=== PATIENT | female | born 1955 | race Caucasian/White ===

== ENCOUNTER 2017-02-12 14:17 | Emergency (ER) | payer MEDICARE, OTHER ==
[2017-02-12 14:31] VITALS: RESP 16
[2017-02-12] MEDS ORDERED: KETOROLAC 30 MG/ML 1 ML VIAL IVP STA (14:36)
[2017-02-12] MEDS ORDERED: SODIUM CHLORIDE 0.9% 1,000 ML IV STA (14:36)
[2017-02-12] MEDS ORDERED: methylPREDNISolone SOD SUCCI 125 MG/2 ML VIAL IV STA (15:20)
[2017-02-12] MEDS ORDERED: LORazepam 2 MG/ML INJ IV STA (15:20)
[2017-02-12] MEDS ORDERED: HYDROmorphone 1 MG/ML 1 ML SYRINGE IVP STA (15:20)
--- NOTE | 2017-02-12 15:23 | ED ---
General Adult HPI - General Chief complaint: Chest Pain Stated complaint: COPD Time Seen by Provider: 02/12/17 14:33 Source: patient, RN notes reviewed, old records reviewed Mode of arrival: ambulatory Limitations: no limitations - History of Present Illness Initial comments: This is a 61-year-old female to the ER for evaluation of shortness of cough congestion. Patient denies pain no chest pain no fevers. No travel history no sick contacts. Patient is well known history of COPD is doing. She was at home with no real significant improvement. Symptoms have progressed. No modifying factors for symptoms at home. - Related Data Home Medications Medication Instructions Recorded Confirmed Cyclobenzaprine [Flexeril] 10 mg PO TID PRN 04/12/14 02/12/17 HYDROcodone/APAP 5-325MG [[place] 1 tab PO Q6H PRN 04/12/14 02/12/17 5-325] LORazepam [Ativan] 0.5 mg PO BID PRN 04/12/14 02/12/17 Omeprazole [PriLOSEC] 20 mg PO DAILY 04/12/14 02/12/17 Aspirin 325 mg PO DAILY 07/13/16 02/12/17 Atorvastatin Calcium [Lipitor] 20 mg PO HS 07/13/16 02/12/17 Albuterol Nebulized [Ventolin 2.5 mg INHALATION RT-Q6H PRN 12/29/16 02/12/17 Nebulized] Albuterol Sulfate [Proair Hfa] 2 puff INHALATION RT-QID 02/12/17 02/12/17 Tiotropium [place] [Spiriva] 1 cap INHALATION DAILY 02/12/17 02/12/17 Triamcinolone 0.1% Cream [Kenalog] 1 applicatio TOPICAL BID PRN 02/12/17 Previous Rx's Medication Instructions Recorded Albuterol Nebulized [Ventolin 2.5 mg INHALATION Q4H PRN #25 nebu 02/12/17 Nebulized] Albuterol Sulfate [Proair Hfa] 1 - 2 puff INHALATION Q4H PRN #1 02/12/17 inhaler Azithromycin [Zithromax] 0 mg PO DIRECTED #6 tab 02/12/17 Naproxen [Naprosyn] 500 mg PO Q12HR PRN #30 tab 02/12/17 predniSONE 50 mg PO DAILY #5 tab 02/12/17 Allergies Allergy/AdvReac Type Severity Reaction Status Date / Time codeine Allergy Rapid Verified 02/12/17 15:28 Heart Rate meperidine HCl [From Demerol] Allergy Rapid Verified 02/12/17 15:28 Heart Rate morphine Allergy Rapid Verified 02/12/17 15:28 Heart Rate Review of Systems ROS Statement: Those systems with pertinent positive or pertinent negative responses have been documented in the HPI. ROS Other: All systems not noted in ROS Statement are negative. Past Medical History Past Medical History: Asthma, GERD/Reflux, Hyperlipidemia, Pneumonia, Skin Disorder Additional Past Medical History / Comment(s): COPD, chronic back pain, chronic neck pain and the patient has undergone previous cervical spine surgery, psoriasis, osteoarthritis, hyperlipidemia History of Any Multi-Drug Resistant Organisms: None Reported Past Surgical History: Appendectomy, Orthopedic Surgery, Tonsillectomy, Tubal Ligation Additional Past Surgical History / Comment(s): cervical fusion with plate and screws, EGD, colonoscopies. Past Anesthesia/Blood Transfusion Reactions: Motion Sickness, No Reported Reaction Past Psychological History: No Psychological Hx Reported Smoking Status: Former smoker Past Alcohol Use History: None Reported Past Drug Use History: None Reported - Past Family History Father Family Medical History: Cancer Additional Family Medical History / Comment(s): Father of colon cancer at the age of 57yrs. Mother Family Medical History: Congestive Heart Failure (CHF), Neurologic Disorder Additional Family Medical History / Comment(s): Mother of CHF at the age of 63yrs. She had [place]'s dx. General Exam Limitations: no limitations General appearance: alert, in no apparent distress Head exam: Present: atraumatic, normocephalic, normal inspection Eye exam: Present: normal appearance, PERRL, EOMI. Absent: scleral icterus, conjunctival injection, periorbital swelling ENT exam: Present: normal exam, mucous membranes moist Neck exam: Present: normal inspection. Absent: tenderness, meningismus, lymphadenopathy Respiratory exam: Present: wheezes. Absent: respiratory distress, rales, rhonchi, stridor Cardiovascular Exam: Present: normal rhythm, tachycardia, normal heart sounds. Absent: systolic murmur, diastolic murmur, rubs, gallop, clicks GI/Abdominal exam: Present: soft, normal bowel sounds. Absent: distended, tenderness, guarding, rebound, rigid Extremities exam: Present: normal inspection, full ROM, normal capillary refill. Absent: tenderness, pedal edema, joint swelling, calf tenderness Back exam: Present: normal inspection Neurological exam: Present: alert, oriented X3, CN II-XII intact Psychiatric exam: Present: normal affect, normal mood Skin exam: Present: warm, dry, intact, normal color. Absent: rash Course Vital Signs 02/12/17 02/12/17 02/12/17 14:28 15:18 15:43 Temperature 97.9 F Pulse Rate 108 H 98 90 Respiratory 16 16 16 Rate Blood Pressure 152/74 149/79 164/79 O2 Sat by Pulse 97 96 98 Oximetry 02/12/17 16:34 Temperature 98.7 F Pulse Rate 76 Respiratory 16 Rate Blood Pressure 140/72 O2 Sat by Pulse 98 Oximetry - Reevaluation(s) Reevaluation #1: Patient's symptoms are much improved throat yesterday, wanting to be discharged home EKG Findings - EKG Comments: EKG Findings:: EKG shows sinus tachycardia rate of 105, [place] 156, QRS 86, QTc 489 Medical Decision Making - Medical Decision Making 61 female to ER for evaluation of cough congestion shortness of breath well- known to this emergency room history of COPD. Current COPD exacerbation. Extremities is normal. Patient is feeling better and can be discharged home - Lab Data Result diagrams: 02/12/17 15:15 02/12/17 15:15 Lab Results 02/12/17 02/12/17 02/12/17 Range/Units 15:15 15:15 15:15 WBC 5.8 (3.8-10.6) k/uL RBC 4.93 (3.80-5.40) m/uL Hgb 13.5 (11.4-16.0) gm/dL Hct 42.2 (34.0-46.0) % MCV 85.7 (80.0-100.0) fL MCH 27.4 (25.0-35.0) pg MCHC 31.9 (31.0-37.0) g/dL RDW 14.7 (11.5-15.5) % Plt Count 285 (150-450) k/uL Neutrophils % 48 % Lymphocytes % 39 % Monocytes % 7 % Eosinophils % 3 % Basophils % 2 % Neutrophils # 2.8 (1.3-7.7) k/uL Lymphocytes # 2.3 (1.0-4.8) k/uL Monocytes # 0.4 (0-1.0) k/uL Eosinophils # 0.2 (0-0.7) k/uL Basophils # 0.1 (0-0.2) k/uL PT (9.0-12.0) sec INR (<1.2) APTT (22.0-30.0) sec D-Dimer (<0.60) mg/L FEU Sodium 141 (137-145) mmol/L Potassium 4.5 (3.5-5.1) mmol/L Chloride 102 (98-107) mmol/L Carbon Dioxide 26 (22-30) mmol/L Anion Gap 13 mmol/L BUN 7 (7-17) mg/dL Creatinine 0.70 (0.52-1.04) mg/dL Est GFR (MDRD) Af Amer >60 (>60 ml/min/1.73 sqM) Est GFR (MDRD) Non-Af >60 (>60 ml/min/1.73 sqM) Glucose 118 H (74-99) mg/dL Calcium 9.9 (8.4-10.2) mg/dL Magnesium 2.2 (1.6-2.3) mg/dL Total Bilirubin 0.4 (0.2-1.3) mg/dL AST 83 H (14-36) U/L ALT 78 H (9-52) U/L Alkaline Phosphatase 101 (38-126) U/L Total Creatine Kinase 62 (30-135) U/L CK-MB (CK-2) 0.7 (0.0-2.4) ng/mL CK-MB (CK-2) Rel Index 1.1 Troponin I <0.012 (0.000-0.034) ng/mL Total Protein 7.9 (6.3-8.2) g/dL Albumin 4.2 (3.5-5.0) g/dL Lipase 51 (23-300) U/L 02/12/ Range/Units 15:15 WBC (3.8-10.6) k/uL RBC (3.80-5.40) m/uL Hgb (11.4-16.0) gm/dL Hct (34.0-46.0) % MCV (80.0-100.0) fL MCH (25.0-35.0) pg MCHC (31.0-37.0) g/dL RDW (11.5-15.5) % Plt Count (150-450) k/uL Neutrophils % % Lymphocytes % % Monocytes % % Eosinophils % % Basophils % % Neutrophils # (1.3-7.7) k/uL Lymphocytes # (1.0-4.8) k/uL Monocytes # (0-1.0) k/uL Eosinophils # (0-0.7) k/uL Basophils # (0-0.2) k/uL PT 10.2 (9.0-12.0) sec INR 1.0 (<1.2) APTT 25.6 (22.0-30.0) sec D-Dimer 0.23 (<0.60) mg/L FEU Sodium (137-145) mmol/L Potassium (3.5-5.1) mmol/L Chloride (98-107) mmol/L Carbon Dioxide (22-30) mmol/L Anion Gap mmol/L BUN (7-17) mg/dL Creatinine (0.52-1.04) mg/dL Est GFR (MDRD) Af Amer (>60 ml/min/1.73 sqM) Est GFR (MDRD) Non-Af (>60 ml/min/1.73 sqM) Glucose (74-99) mg/dL Calcium (8.4-10.2) mg/dL Magnesium (1.6-2.3) mg/dL Total Bilirubin (0.2-1.3) mg/dL AST (14-36) U/L ALT (9-52) U/L Alkaline Phosphatase (38-126) U/L Total Creatine Kinase (30-135) U/L CK-MB (CK-2) (0.0-2.4) ng/mL CK-MB (CK-2) Rel Index Troponin I (0.000-0.034) ng/mL Total Protein (6.3-8.2) g/dL Albumin (3.5-5.0) g/dL Lipase (23-300) U/L Disposition Clinical Impression: Acute exacerbation of chronic obstructive airways disease, Anxiety Disposition: HOME SELF-CARE Condition: Good Instructions: COPD (Chronic Obstructive Pulmonary Disease) (ED), Chronic Bronchitis (ED) Prescriptions: Albuterol Nebulized [Ventolin Nebulized] 2.5 mg INHALATION Q4H PRN #25 nebu PRN Reason: Shortness Of Breath Albuterol Sulfate [Proair Hfa] 1 - 2 puff INHALATION Q4H PRN #1 inhaler PRN Reason: Shortness Of Breath Azithromycin [Zithromax] 0 mg PO DIRECTED #6 tab Naproxen [Naprosyn] 500 mg PO Q12HR PRN #30 tab PRN Reason: Pain predniSONE 50 mg PO DAILY #5 tab Referrals: Joey Caldwell MD [Primary Care Provider] - 1-2 days
[2017-02-12 15:44] LABS: Basophils # (A) 0.1 k/uL (0-0.2); Basophils % (A) 2 %; Eosinophils # (A) 0.2 k/uL (0-0.7); Eosinophils % (A) 3 %; HCT 42.2 % (34.0-46.0); HGB 13.5 gm/dL (11.4-16.0); Lymphocytes # (A) 2.3 k/uL (1.0-4.8); Lymphocytes % (A) 39 %; MCH 27.4 pg (25.0-35.0); MCHC 31.9 g/dL (31.0-37.0); MCV 85.7 fL (80.0-100.0); Mean Platelet Volume 7.6; Monocytes # (A) 0.4 k/uL (0-1.0); Monocytes % (A) 7 %; Neutrophils # (A) 2.8 k/uL (1.3-7.7); Neutrophils % (A) 48 %; Platelet Count 285 k/uL (150-450); RBC 4.93 m/uL (3.80-5.40); RDW 14.7 % (11.5-15.5); WBC 5.8 k/uL (3.8-10.6)
[2017-02-12 15:53] LABS: ALT 78 U/L (9-52); AST 83 U/L (14-36); Albumin 4.2 g/dL (3.5-5.0); Alkaline Phosphatase 101 U/L (38-126); Anion Gap 13 mmol/L; Blood Urea Nitrogen 7 mg/dL (7-17); Calcium 9.9 mg/dL (8.4-10.2); Carbon Dioxide 26 mmol/L (22-30); Chloride 102 mmol/L (98-107); Glucose 118 mg/dL (74-99); Lipase 51 U/L (23-300); Magnesium 2.2 mg/dL (1.6-2.3); Sodium 141 mmol/L (137-145); Total Bilirubin 0.4 mg/dL (0.2-1.3); Total Protein 7.9 g/dL (6.3-8.2)
[2017-02-12 15:55] LABS: Potassium 4.5 mmol/L (3.5-5.1)
[2017-02-12 16:00] LABS: Creatine Kinase 62 U/L (30-135)
[2017-02-12 16:12] LABS: Creatine Kinase MB 0.7 ng/mL (0.0-2.4); Troponin I <0.012 ng/mL (0.000-0.034)
[2017-02-12 16:20] LABS: D-Dimer 0.23 mg/L FEU (<0.60); Partial Thromboplastin Time 25.6 sec (22.0-30.0); Prothrombin Time 10.2 sec (9.0-12.0)
[2017-02-12 16:35] VITALS: BP 140/72; PULSE 76; TEMP 98.7
--- NOTE | 2017-02-12 16:43 | XR ---
EXAMINATION TYPE: XR chest 1V portable DATE OF EXAM: 02/12/2017 COMPARISON: 12/29/2016 HISTORY: Shortness of breath TECHNIQUE: Frontal and lateral views of the chest are obtained. FINDINGS: Scattered senescent parenchymal changes noted. Hyperinflation compatible with COPD. No evidence for infiltrate. No evidence for atelectasis. Heart size is stable. Mediastinal structures are stable and grossly unremarkable. No evidence for hilar prominence. Degenerative changes dorsal spine. IMPRESSION: 1. No evidence for acute pulmonary disease.
== END 2017-02-12 16:43 | disposition home or self-care (01) ==
LOC: EC 14:17
DX: J44.1 Chronic obstructive pulmonary disease with (acute) exacerbation (principal); F41.9 Anxiety disorder, unspecified; K21.9 Gastro-esophageal reflux disease without esophagitis; E78.5 Hyperlipidemia, unspecified; Z87.891 Personal history of nicotine dependence; Z79.82 Long term (current) use of aspirin; Z79.899 Other long term (current) drug therapy; Z88.5 Allergy status to narcotic agent
CPT/HCPCS: 99285; 96374; 96375 ×2; 96361; 36415; 93005; 85379; 80053; 82550; 82553; 83690; 83735; 84484; 85025; 85610; 85730; 71010; J2060; J2930; J1885

== ENCOUNTER 2017-05-15 14:55 | Observation (INO) | payer MEDICARE, OTHER ==
[2017-05-15] MEDS ORDERED: IPRATROPIUM-ALBUTEROL 3 ML NEB INHALATION STA (15:20)
[2017-05-15] MEDS ORDERED: ACETAMINOPHEN TAB 500 MG TAB PO STA (15:20)
--- NOTE | 2017-05-15 15:23 | ED ---
General Adult HPI - General Chief complaint: Shortness of Breath Stated complaint: cough; hx of asthma Time Seen by Provider: 05/15/17 15:12 Source: patient Mode of arrival: ambulatory Limitations: no limitations - History of Present Illness Initial comments: Patient is a pleasant 62-year-old female presenting to the emergency department with difficulty in breathing. Symptoms have progressed over the past couple of days. Patient has cough which is dry nonproductive. Patient does have some sternal discomfort as well. Patient is unclear if discomfort is related to cough or not. Patient does have somewhat similar symptoms previously associated with COPD. Patient also has asthma. Patient is unaware of any fevers. - Related Data Home Medications Medication Instructions Recorded Confirmed Cyclobenzaprine [Flexeril] 10 mg PO TID PRN 04/12/14 05/15/17 HYDROcodone/APAP 5-325MG [[place] 1 tab PO Q6H PRN 04/12/14 05/15/17 5-325] Omeprazole [PriLOSEC] 20 mg PO DAILY 04/12/14 05/15/17 Aspirin 325 mg PO DAILY 07/13/16 05/15/17 Atorvastatin Calcium [Lipitor] 20 mg PO HS 07/13/16 05/15/17 Albuterol Nebulized [Ventolin 2.5 mg INHALATION RT-Q6H PRN 12/29/16 05/15/17 Nebulized] Albuterol Sulfate [Proair Hfa] 2 puff INHALATION RT-QID 02/12/17 05/15/17 Tiotropium [place] [Spiriva] 1 cap INHALATION RT-DAILY 02/12/17 05/15/17 Previous Rx's Medication Instructions Recorded Naproxen [Naprosyn] 500 mg PO Q12HR PRN #30 tab 02/12/17 Allergies Allergy/AdvReac Type Severity Reaction Status Date / Time codeine Allergy Rapid Verified 05/15/17 15:13 Heart Rate meperidine HCl [From Demerol] Allergy Rapid Verified 05/15/17 15:13 Heart Rate morphine Allergy Rapid Verified 05/15/17 15:13 Heart Rate Review of Systems ROS Statement: Those systems with pertinent positive or pertinent negative responses have been documented in the HPI. ROS Other: All systems not noted in ROS Statement are negative. Constitutional: Denies: fever, chills Eyes: Denies: eye pain ENT: Denies: ear pain Respiratory: Reports: cough, dyspnea Cardiovascular: Reports: chest pain Endocrine: Denies: fatigue Gastrointestinal: Denies: abdominal pain Genitourinary: Denies: dysuria Musculoskeletal: Denies: back pain Skin: Denies: rash Neurological: Denies: headache Past Medical History Past Medical History: Asthma, GERD/Reflux, Hyperlipidemia, Pneumonia, Skin Disorder Additional Past Medical History / Comment(s): COPD, chronic back pain, chronic neck pain and the patient has undergone previous cervical spine surgery, psoriasis, osteoarthritis, hyperlipidemia History of Any Multi-Drug Resistant Organisms: None Reported Past Surgical History: Appendectomy, Orthopedic Surgery, Tonsillectomy, Tubal Ligation Additional Past Surgical History / Comment(s): cervical fusion with plate and screws, EGD, colonoscopies. Past Anesthesia/Blood Transfusion Reactions: Motion Sickness, No Reported Reaction Past Psychological History: No Psychological Hx Reported Smoking Status: Former smoker Past Alcohol Use History: None Reported Past Drug Use History: None Reported - Past Family History Father Family Medical History: Cancer Additional Family Medical History / Comment(s): Father of colon cancer at the age of 57yrs. Mother Family Medical History: Congestive Heart Failure (CHF), Neurologic Disorder Additional Family Medical History / Comment(s): Mother of CHF at the age of 63yrs. She had [place]'s dx. General Exam Limitations: no limitations General appearance: alert, in no apparent distress Head exam: Present: atraumatic Eye exam: Present: normal appearance, PERRL ENT exam: Present: normal oropharynx Neck exam: Present: normal inspection Respiratory exam: Present: wheezes, decreased breath sounds Cardiovascular Exam: Present: regular rate, normal rhythm Expanded Peripheral pulses: 2+: Dorsalis Pedis (R), Dorsalis Pedis (L) GI/Abdominal exam: Present: soft. Absent: tenderness Extremities exam: Present: normal inspection. Absent: pedal edema, calf tenderness Neurological exam: Present: alert Psychiatric exam: Present: normal affect, normal mood Skin exam: Present: normal color Course Vital Signs 05/15/17 05/15/17 05/15/17 14:59 15:28 15:36 Temperature 99.8 F H Pulse Rate 103 H 90 91 Respiratory 18 16 16 Rate Blood Pressure 155/119 O2 Sat by Pulse 96 Oximetry 05/15/17 16:16 Temperature Pulse Rate 94 Respiratory 16 Rate Blood Pressure 174/95 O2 Sat by Pulse 95 Oximetry EKG Findings - EKG Comments: EKG Findings:: Normal sinus rhythm 92. CT 152. QRS 96. QT 406. QTc 502. Normal axis. Inferior Q waves. No acute ST change. Medical Decision Making - Medical Decision Making Patient reevaluated and resting comfortably in bed. Patient still has some dyspnea. Patient is updated on results and plan. Case discussed in detail with Dr. Valladares, who will admit for hospital call. D-dimer has been added. - Lab Data Result diagrams: 05/15/17 15:45 05/15/17 15:45 Lab Results 05/15/17 05/15/17 05/15/17 Range/Units 15:30 15:45 15:45 WBC 6.4 (3.8-10.6) k/uL RBC 4.64 (3.80-5.40) m/uL Hgb 12.6 (11.4-16.0) gm/dL Hct 38.7 (34.0-46.0) % MCV 83.4 (80.0-100.0) fL MCH 27.1 (25.0-35.0) pg MCHC 32.5 (31.0-37.0) g/dL RDW 14.5 (11.5-15.5) % Plt Count 256 (150-450) k/uL Neutrophils % 54 % Lymphocytes % 37 % Monocytes % 5 % Eosinophils % 1 % Basophils % 1 % Neutrophils # 3.5 (1.3-7.7) k/uL Lymphocytes # 2.4 (1.0-4.8) k/uL Monocytes # 0.4 (0-1.0) k/uL Eosinophils # 0.1 (0-0.7) k/uL Basophils # 0.0 (0-0.2) k/uL PT (9.0-12.0) sec INR (<1.2) APTT (22.0-30.0) sec Sodium (137-145) mmol/L Potassium (3.5-5.1) mmol/L Chloride (98-107) mmol/L Carbon Dioxide (22-30) mmol/L Anion Gap mmol/L BUN (7-17) mg/dL Creatinine (0.52-1.04) mg/dL Est GFR (CKD-EPI)AfAm (>60 ml/min/1.73 sqM) Est GFR (CKD-EPI)NonAf (>60 ml/min/1.73 sqM) Glucose (74-99) mg/dL Plasma Lactic Acid Vivek (0.7-2.0) mmol/L Calcium (8.4-10.2) mg/dL Total Bilirubin (0.2-1.3) mg/dL AST (14-36) U/L ALT (9-52) U/L Alkaline Phosphatase (38-126) U/L Total Creatine Kinase 81 (30-135) U/L CK-MB (CK-2) 0.7 (0.0-2.4) ng/mL CK-MB (CK-2) Rel Index 0.9 Troponin I <0.012 (0.000-0.034) ng/mL Total Protein (6.3-8.2) g/dL Albumin (3.5-5.0) g/dL Urine Color Urine Appearance (Clear) Urine pH (5.0-8.0) Ur Specific [place] (1.001-1.035) Urine Protein (Negative) Urine Glucose (UA) (Negative) Urine Ketones (Negative) Urine Blood (Negative) Urine Nitrite (Negative) Urine Bilirubin (Negative) Urine Urobilinogen (<2.0) mg/dL Ur Leukocyte Esterase (Negative) Influenza Type A RNA Not Detected (Not Detectd) Influenza Type B (PCR) Not Detected (Not Detectd) 05/15/17 05/15/17 05/15/17 Range/Units 15:45 15:45 15:45 WBC (3.8-10.6) k/uL RBC (3.80-5.40) m/uL Hgb (11.4-16.0) gm/dL Hct (34.0-46.0) % MCV (80.0-100.0) fL MCH (25.0-35.0) pg MCHC (31.0-37.0) g/dL RDW (11.5-15.5) % Plt Count (150-450) k/uL Neutrophils % % Lymphocytes % % Monocytes % % Eosinophils % % Basophils % % Neutrophils # (1.3-7.7) k/uL Lymphocytes # (1.0-4.8) k/uL Monocytes # (0-1.0) k/uL Eosinophils # (0-0.7) k/uL Basophils # (0-0.2) k/uL PT 10.8 (9.0-12.0) sec INR 1.1 (<1.2) APTT 25.1 (22.0-30.0) sec Sodium 139 (137-145) mmol/L Potassium 3.9 (3.5-5.1) mmol/L Chloride 105 (98-107) mmol/L Carbon Dioxide 24 (22-30) mmol/L Anion Gap 10 mmol/L BUN 8 (7-17) mg/dL Creatinine 0.60 (0.52-1.04) mg/dL Est GFR (CKD-EPI)AfAm >90 (>60 ml/min/1.73 sqM) Est GFR (CKD-EPI)NonAf >90 (>60 ml/min/1.73 sqM) Glucose 116 H (74-99) mg/dL Plasma Lactic Acid Vivek 1.5 (0.7-2.0) mmol/L Calcium 9.7 (8.4-10.2) mg/dL Total Bilirubin 0.4 (0.2-1.3) mg/dL AST 130 H (14-36) U/L ALT 92 H (9-52) U/L Alkaline Phosphatase 102 (38-126) U/L Total Creatine Kinase (30-135) U/L CK-MB (CK-2) (0.0-2.4) ng/mL CK-MB (CK-2) Rel Index Troponin I (0.000-0.034) ng/mL Total Protein 7.4 (6.3-8.2) g/dL Albumin 4.2 (3.5-5.0) g/dL Urine Color Urine Appearance (Clear) Urine pH (5.0-8.0) Ur Specific [place] (1.001-1.035) Urine Protein (Negative) Urine Glucose (UA) (Negative) Urine Ketones (Negative) Urine Blood (Negative) Urine Nitrite (Negative) Urine Bilirubin (Negative) Urine Urobilinogen (<2.0) mg/dL Ur Leukocyte Esterase (Negative) Influenza Type A RNA (Not Detectd) Influenza Type B (PCR) (Not Detectd) 05/15/17 Range/Units 16:00 WBC (3.8-10.6) k/uL RBC (3.80-5.40) m/uL Hgb (11.4-16.0) gm/dL Hct (34.0-46.0) % MCV (80.0-100.0) fL MCH (25.0-35.0) pg MCHC (31.0-37.0) g/dL RDW (11.5-15.5) % Plt Count (150-450) k/uL Neutrophils % % Lymphocytes % % Monocytes % % Eosinophils % % Basophils % % Neutrophils # (1.3-7.7) k/uL Lymphocytes # (1.0-4.8) k/uL Monocytes # (0-1.0) k/uL Eosinophils # (0-0.7) k/uL Basophils # (0-0.2) k/uL PT (9.0-12.0) sec INR (<1.2) APTT (22.0-30.0) sec Sodium (137-145) mmol/L Potassium (3.5-5.1) mmol/L Chloride (98-107) mmol/L Carbon Dioxide (22-30) mmol/L Anion Gap mmol/L BUN (7-17) mg/dL Creatinine (0.52-1.04) mg/dL Est GFR (CKD-EPI)AfAm (>60 ml/min/1.73 sqM) Est GFR (CKD-EPI)NonAf (>60 ml/min/1.73 sqM) Glucose (74-99) mg/dL Plasma Lactic Acid Vivek (0.7-2.0) mmol/L Calcium (8.4-10.2) mg/dL Total Bilirubin (0.2-1.3) mg/dL AST (14-36) U/L ALT (9-52) U/L Alkaline Phosphatase (38-126) U/L Total Creatine Kinase (30-135) U/L CK-MB (CK-2) (0.0-2.4) ng/mL CK-MB (CK-2) Rel Index Troponin I (0.000-0.034) ng/mL Total Protein (6.3-8.2) g/dL Albumin (3.5-5.0) g/dL Urine Color Colorless Urine Appearance Clear (Clear) Urine pH 6.0 (5.0-8.0) Ur Specific [place] 1.001 (1.001-1.035) Urine Protein Negative (Negative) Urine Glucose (UA) Negative (Negative) Urine Ketones Negative (Negative) Urine Blood Negative (Negative) Urine Nitrite Negative (Negative) Urine Bilirubin Negative (Negative) Urine Urobilinogen <2.0 (<2.0) mg/dL Ur Leukocyte Esterase Negative (Negative) Influenza Type A RNA (Not Detectd) Influenza Type B (PCR) (Not Detectd) - Radiology Data Radiology results: image reviewed (Chest x-ray shows no acute process) Disposition Clinical Impression: Acute exacerbation of chronic obstructive airways disease, Chest pain Disposition: ADMITTED IP TO THIS HOSP Referrals: Alberto Hunt MD [Primary Care Provider] - 1-2 days Decision Time: 16:54
[2017-05-15 15:58] LABS: Basophils % (A) 1 %; Eosinophils # (A) 0.1 k/uL (0-0.7); Eosinophils % (A) 1 %; HCT 38.7 % (34.0-46.0); HGB 12.6 gm/dL (11.4-16.0); Lymphocytes # (A) 2.4 k/uL (1.0-4.8); Lymphocytes % (A) 37 %; MCH 27.1 pg (25.0-35.0); MCHC 32.5 g/dL (31.0-37.0); MCV 83.4 fL (80.0-100.0); Mean Platelet Volume 7.6; Monocytes # (A) 0.4 k/uL (0-1.0); Monocytes % (A) 5 %; Neutrophils # (A) 3.5 k/uL (1.3-7.7); Neutrophils % (A) 54 %; Platelet Count 256 k/uL (150-450); RBC 4.64 m/uL (3.80-5.40); RDW 14.5 % (11.5-15.5); WBC 6.4 k/uL (3.8-10.6)
[2017-05-15 16:06] LABS: INR 1.1 (<1.2); Partial Thromboplastin Time 25.1 sec (22.0-30.0); Prothrombin Time 10.8 sec (9.0-12.0)
[2017-05-15 16:08] LABS: ALT 92 U/L (9-52); AST 130 U/L (14-36); Albumin 4.2 g/dL (3.5-5.0); Alkaline Phosphatase 102 U/L (38-126); Anion Gap 10 mmol/L; Blood Urea Nitrogen 8 mg/dL (7-17); Calcium 9.7 mg/dL (8.4-10.2); Carbon Dioxide 24 mmol/L (22-30); Chloride 105 mmol/L (98-107); Glucose 116 mg/dL (74-99); Potassium 3.9 mmol/L (3.5-5.1); Sodium 139 mmol/L (137-145); Total Bilirubin 0.4 mg/dL (0.2-1.3); Total Protein 7.4 g/dL (6.3-8.2)
--- NOTE | 2017-05-15 16:17 | XR ---
EXAMINATION TYPE: XR chest 2V DATE OF EXAM: 05/15/2017 COMPARISON: February 12, 2017 HISTORY: Fever TECHNIQUE: Frontal and lateral views of the chest are obtained. FINDINGS: There is no focal air space opacity, pleural effusion, or pneumothorax seen. The cardiac silhouette size is within normal limits. The osseous structures are intact. IMPRESSION: No acute cardiopulmonary process.
[2017-05-15 16:23] LABS: Appearance,Urine Clear (Clear); Bilirubin,Urine Negative (Negative); Blood,Urine Negative (Negative); Color,Urine Colorless; Glucose,Urine (UA) Negative (Negative); Ketones,Urine Negative (Negative); Leukocyte Esterase,Urine Negative (Negative); Nitrite,Urine Negative (Negative); Protein,Urine Negative (Negative); Specific Gravity,Urine 1.001 (1.001-1.035); Urobilinogen,Urine <2.0 mg/dL (<2.0)
[2017-05-15 16:23] LABS: Creatine Kinase 81 U/L (30-135)
[2017-05-15 16:34] LABS: Creatine Kinase MB 0.7 ng/mL (0.0-2.4); Troponin I <0.012 ng/mL (0.000-0.034)
[2017-05-15] MEDS ORDERED: methylPREDNISolone SOD SUCCI 125 MG/2 ML VIAL IV STA (16:54)
[2017-05-15] MEDS ORDERED: IPRATROPIUM-ALBUTEROL 3 ML NEB INHALATION PRN (16:54)
[2017-05-15] MEDS ORDERED: NITROGLYCERIN SL TABS 0.4 MG TAB SUBLINGUAL PRN (16:54)
[2017-05-15] MEDS ORDERED: ASPIRIN 81 MG PO STA (16:54)
[2017-05-15] MEDS ORDERED: NALOXONE 0.4 MG/ML 1 ML VIAL IV PRN (18:08)
--- NOTE | 2017-05-15 18:08 | P.HPIM ---
History of Present Illness H&P Date: 05/15/17 Chief Complaint: SOB 62-year-old female with history of COPD presented to the emergency department with difficulty in breathing. Patient has been sick since last Wednesday, no reported sick contacts. She has been having pleuritic chest pain with the shortness of breath. She also has cough which is dry nonproductive. She has also been having subjective fevers and chills. No nausea or vomiting, no abdominal pain. No dizziness or diaphoresis. Patient was diagnosed with COPD last June, when she quit smoking. He has been on albuterol and Symbicort since then. In the emergency department she was slightly tachycardic and because of the chest pain she was admitted to the hospital for further evaluation and management. Review of Systems 12 point review of system was performed, negative except for HPI Past Medical History Past Medical History: Asthma, GERD/Reflux, Hyperlipidemia, Pneumonia, Skin Disorder Additional Past Medical History / Comment(s): COPD, chronic back pain, chronic neck pain and the patient has undergone previous cervical spine surgery, psoriasis, osteoarthritis, hyperlipidemia. Jag disease. History of Any Multi-Drug Resistant Organisms: None Reported Past Surgical History: Appendectomy, Orthopedic Surgery, Tonsillectomy, Tubal Ligation Additional Past Surgical History / Comment(s): cervical fusion with plate and screws, EGD, colonoscopies. Past Anesthesia/Blood Transfusion Reactions: Motion Sickness, No Reported Reaction Past Psychological History: No Psychological Hx Reported Smoking Status: Former smoker Past Alcohol Use History: None Reported Past Drug Use History: None Reported - Past Family History Father Family Medical History: Cancer Additional Family Medical History / Comment(s): Father of colon cancer at the age of 57yrs. Mother Family Medical History: Congestive Heart Failure (CHF), Neurologic Disorder Additional Family Medical History / Comment(s): Mother of CHF at the age of 63yrs. She had [place]'s dx. Medications and Allergies Home Medications Medication Instructions Recorded Confirmed Type Cyclobenzaprine [Flexeril] 10 mg PO TID PRN 04/12/14 05/15/17 History HYDROcodone/APAP 5-325MG [[place] 1 tab PO Q6H PRN 04/12/14 05/15/17 History 5-325] Omeprazole [PriLOSEC] 20 mg PO DAILY 04/12/14 05/15/17 History Aspirin 325 mg PO DAILY 07/13/16 05/15/17 History Atorvastatin Calcium [Lipitor] 20 mg PO HS 07/13/16 05/15/17 History Albuterol Nebulized [Ventolin 2.5 mg INHALATION RT-Q6H PRN 12/29/16 05/15/17 History Nebulized] Albuterol Sulfate [Proair Hfa] 2 puff INHALATION RT-QID 02/12/17 05/15/17 History Naproxen [Naprosyn] 500 mg PO Q12HR PRN #30 tab 02/12/17 05/15/17 Rx Tiotropium [place] [Spiriva] 1 cap INHALATION RT-DAILY 02/12/17 05/15/17 History Allergies Allergy/AdvReac Type Severity Reaction Status Date / Time codeine Allergy Rapid Verified 05/15/17 15:13 Heart Rate meperidine HCl [From Demerol] Allergy Rapid Verified 05/15/17 15:13 Heart Rate morphine Allergy Rapid Verified 05/15/17 15:13 Heart Rate Physical Exam Vitals: Vital Signs Temp Pulse Resp BP Pulse Ox 05/15/17 17:00 98 16 139/81 97 05/15/17 16:16 94 16 174/95 95 05/15/17 15:36 91 16 05/15/17 15:28 90 16 05/15/17 14:59 99.8 F H 103 H 18 155/119 96 Intake and Output 05/15/17 05/15/17 05/15/17 06:59 14:59 22:59 Other: Weight 92.986 kg Constitutional: No acute distress, conversant, pleasant Eyes:Anicteric sclerae, moist conjunctiva, no lid-lag, PERRLA, ENMT: Oropharynx clear, no erythema, exudates Neck: Supple, FROM, no masses, or JVD, No carotid bruits, No thyromegaly Lungs: Clear to auscultation, Clear to percussion, Normal respiratory effort, no accessory muscle use Cardiovascular: Heart regular in rate and rhythm, No murmurs, gallops, or rubs, No peripheral edema Abdominal: Soft, Nontender, no guarding, rebound or rigidity, Normoactive bowel sounds, No hepatomegaly, No splenomegaly, No palpable mass Skin: Normal temperature, tone, texture, turgor, no induration, No subcutaneous nodules, No rash, lesions, No ulcers Extremities: No digital cyanosis, No clubbing, Pedal pulses intact and symmetrical, Radial pulses intact and symmetrical, No calf tenderness Psychiatric: Alert and oriented to person, place and time, appropriate affect, intact judgement Neuro: Muscles Strength 5/5 in all 4 extremities, Sensation to light touch grossly present throughout, Cranial nerves II-XII grossly intact, no focal sensory deficits Results CBC & Chem 7: 05/15/17 15:45 05/15/17 15:45 Labs: Abnormal Lab Results - Last 24 Hours (Table) 05/15/17 Range/Units 15:45 Glucose 116 H (74-99) mg/dL AST 130 H (14-36) U/L ALT 92 H (9-52) U/L Assessment and Plan Plan: Acute COPD exacerbation/acute bronchitis: Admit to observation DuoNeb every 6hrs Prednisone Doxycycline 100 mg by mouth twice a day Acute chest pain: Likely pleuritic as patient mainly had it when she was coughing Cycle troponins Tylenol when necessary for pain TELEMETRY Cardiology consult GERD/Reflux, Hyperlipidemia, chronic back pain, chronic neck pain, psoriasis, osteoarthritis, hyperlipidemia. [place] disease: Chronic, stable Continue home medications
[2017-05-15] MEDS: NITROGLYCERIN OINT 1 INCH/GM PACKET TOPICAL SCH ×2 (18:37→23:58)
[2017-05-15] MEDS: IPRATROPIUM-ALBUTEROL 3 ML NEB INHALATION SCH (20:02)
[2017-05-15] MEDS: methylPREDNISolone SOD SUCCI 125 MG/2 ML VIAL IV SCH ×2 (20:10→23:58)
[2017-05-15 20:58] VITALS: BMI 34.0
[2017-05-15 22:30] LABS: Creatine Kinase 67 U/L (30-135)
[2017-05-15] MEDS ORDERED: ATORVASTATIN 20 MG TAB PO SCH (22:30)
[2017-05-15 22:43] LABS: Creatine Kinase MB 0.6 ng/mL (0.0-2.4); Troponin I <0.012 ng/mL (0.000-0.034)
[2017-05-15] MEDS: HYDROcodone/APAP 5-325MG 1 EACH TAB PO PRN (23:21)
[2017-05-15] MEDS: CYCLOBENZAPRINE 10 MG TAB PO PRN (23:58)
[2017-05-16 04:34] LABS: Cholesterol 190 mg/dL (<200); HDL Cholesterol 50 mg/dL (40-60); LDL Cholesterol,Calculated 123 mg/dL (0-99); Triglycerides 84 mg/dL (<150)
[2017-05-16 04:43] LABS: Creatine Kinase 60 U/L (30-135)
[2017-05-16 04:57] LABS: Creatine Kinase MB 0.6 ng/mL (0.0-2.4); Troponin I <0.012 ng/mL (0.000-0.034)
[2017-05-16] MEDS: NITROGLYCERIN OINT 1 INCH/GM PACKET TOPICAL SCH ×3 (06:29→18:21)
[2017-05-16] MEDS: methylPREDNISolone SOD SUCCI 125 MG/2 ML VIAL IV SCH ×3 (06:30→18:21)
[2017-05-16] MEDS ORDERED: NON-FORMULARY DRUG (Tiotropium Bromide [Spiriva] 1 CAP) INHALATION SCH (08:00)
[2017-05-16] MEDS: IPRATROPIUM-ALBUTEROL 3 ML NEB INHALATION SCH ×4 (08:03→19:54)
[2017-05-16] MEDS ORDERED: ASPIRIN 325 MG TAB PO SCH ×2 (09:00→13:12)
[2017-05-16 10:31] LABS: T4, Free (Free Thyroxine) 1.12 ng/dL (0.78-2.19)
--- NOTE | 2017-05-16 10:51 | P.PN ---
Subjective Progress Note Date: 05/16/17 Principal diagnosis: SOB Patient is still having cough, significant shortness of breath and pleuritic chest pain. Objective - Vital Signs Vital signs: Vital Signs Temp 98.1 F 05/16/17 08:00 Pulse 101 H 05/16/17 08:15 Resp 16 05/16/17 08:00 BP 131/68 05/16/17 08:00 Pulse Ox 95 05/16/17 08:03 Intake & Output 05/15/17 05/16/17 05/16/17 18:59 06:59 18:59 Weight 92.986 kg 92.9 kg Other: Voiding Method Toilet # Voids 1 - Exam Constitutional: No acute distress, conversant, pleasant Eyes:Anicteric sclerae, moist conjunctiva, no lid-lag, PERRLA, ENMT: Oropharynx clear, no erythema, exudates Neck: Supple, FROM, no masses, or JVD, No carotid bruits, No thyromegaly Lungs: Clear to auscultation, Clear to percussion, Normal respiratory effort, no accessory muscle use Cardiovascular: Heart regular in rate and rhythm, No murmurs, gallops, or rubs, No peripheral edema Abdominal: Soft, Nontender, no guarding, rebound or rigidity, Normoactive bowel sounds, No hepatomegaly, No splenomegaly, No palpable mass Skin: Normal temperature, tone, texture, turgor, no induration, No subcutaneous nodules, No rash, lesions, No ulcers Extremities: No digital cyanosis, No clubbing, Pedal pulses intact and symmetrical, Radial pulses intact and symmetrical, No calf tenderness Psychiatric: Alert and oriented to person, place and time, appropriate affect, intact judgement Neuro: Muscles Strength 5/5 in all 4 extremities, Sensation to light touch grossly present throughout, Cranial nerves II-XII grossly intact, no focal sensory deficits - Labs CBC & Chem 7: 05/15/17 15:45 05/15/17 15:45 Labs: Abnormal Lab Results - Last 24 Hours (Table) 05/15/17 05/16/17 05/16/17 Range/Units 15:45 03:44 03:44 Glucose 116 H (74-99) mg/dL AST 130 H (14-36) U/L ALT 92 H (9-52) U/L LDL Cholesterol, Calc 123 H (0-99) mg/dL TSH 0.382 L (0.465-4.680) mIU/L Microbiology - Last 24 Hours (Table) 05/15/17 16:00 Urine Culture - Preliminary Urine,Voided Assessment and Plan Plan: Acute COPD exacerbation/acute bronchitis: Start Robitussin for cough DuoNeb every 6hrs Solu-Medrol Start doxycycline 100 mg by mouth twice a day Acute chest pain: Likely pleuritic as patient mainly had it when she was coughing Troponins cycled WNL Tylenol when necessary for pain TELEMETRY Cardiology consult GERD/Reflux, Hyperlipidemia, chronic back pain, chronic neck pain, psoriasis, osteoarthritis, hyperlipidemia. [place] disease: Chronic, stable Continue home medications
[2017-05-16] MEDS: HYDROcodone/APAP 5-325MG 1 EACH TAB PO PRN ×2 (12:03→18:21)
[2017-05-16] MEDS: PANTOPRAZOLE 40 MG TABLET PO SCH (12:03)
[2017-05-16] MEDS: DOXYCYCLINE 50 MG CAP PO SCH ×2 (12:09→21:21)
[2017-05-16] MEDS: CYCLOBENZAPRINE 10 MG TAB PO PRN (12:33)
--- NOTE | 2017-05-16 13:17 | P.CRDCN ---
History of Present Illness Consult date: 05/16/17 History of present illness: Mrs. Mckay is a pleasant 62-year-old female past medical history significant for COPD, gastroesophageal reflux disease and dyslipidemia. She is also a smoker one pack per day. She denies history of coronary artery disease and has never seen a learning developer for any reason. We have been asked to see her in consultation for complaints of chest pain and palpitations. She states over the last week she has had intermittent chest pain described as tight and sharp in midsternal region radiating over to the right anterior chest wall. Each time she has as it last for approximately 20 minutes with associated palpitations, sob, dizziness and diaphoresis. She cannot specify any aggravating or alleviating factors. Although she does state she has been having intermittent palpitations for the previous year and they seem to be related to nebulizer breathing treatments and inhalers. The pain she is experiencing is reproducible in nature when she takes a deep breath or when she tries to move her torso in any way. EKG on arrival reveals sinus mechanism with no acute ST or T-wave abnormalities. Chest x-ray is negative for acute cardiopulmonary process. Laboratory data reviewed, cardiac enzymes negative 3, hemoglobin 12.6, platelets 256, d-dimer 0.3, potassium 3.9, creatinine 0.6, LDL 123, AST 130, ALT 92, TSH 0.382 and free T4 1 0.12. Current cardiac medications include atorvastatin 20 mg daily and aspirin 325 mg daily. Review of Systems At the time of my exam: CONSTITUTIONAL: Denies fever. Denies chills. EYES: Denies blurred vision. Denies vision changes. Denies eye pain. EARS, NOSE, MOUTH & THROAT: Denies headache. Denies sore throat. Denies ear pain. CARDIOVASCULAR: Denies chest pain. Complains of shortness of breath. Denies orthopnea. Denies PND. Complains of palpitations. RESPIRATORY: Denies cough. GASTROINTESTINAL: Denies abdominal pain. Denies diarrhea. Denies constipation. Denies nausea. Denies vomiting. MUSCULOSKELETAL: Denies myalgias. INTEGUMENTARY: Denies pruitis. Denies rash. NEUROLOGIC: Denies numbness. Denies tingling. Denies weakness. PSYCHIATRIC: Denies anxiety. Denies depression. ENDOCRINE: Denies fatigue. Denies weight change. Denies polydipsia. Denies polyurina. GENITOURINARY: Denies burning, hematuria or urgency with micturation. HEMATOLOGIC: Denies history of anemia. Denies bleeding. Past Medical History Past Medical History: Asthma, COPD, GERD/Reflux, Hyperlipidemia, Osteoarthritis (OA), Pneumonia, Skin Disorder Additional Past Medical History / Comment(s): COPD, chronic back pain, chronic neck pain and the patient has undergone previous cervical spine surgery on the neck, psoriasis, osteoarthritis, hyperlipidemia. Jag disease. History of Any Multi-Drug Resistant Organisms: None Reported Past Surgical History: Appendectomy, Orthopedic Surgery, Tonsillectomy, Tubal Ligation Additional Past Surgical History / Comment(s): cervical fusion with plate and screws, EGD, colonoscopies. Past Anesthesia/Blood Transfusion Reactions: Motion Sickness Smoking Status: Former smoker - Past Family History Father Family Medical History: Cancer Additional Family Medical History / Comment(s): Father of colon cancer at the age of 57yrs. Mother Family Medical History: Congestive Heart Failure (CHF), Neurologic Disorder Additional Family Medical History / Comment(s): Mother of CHF at the age of 63yrs. She had [place]'s dx. Medications and Allergies Home Medications Medication Instructions Recorded Confirmed Type Cyclobenzaprine [Flexeril] 10 mg PO TID PRN 04/12/14 05/15/17 History HYDROcodone/APAP 5-325MG [[place] 1 tab PO Q6H PRN 04/12/14 05/15/17 History 5-325] Omeprazole [PriLOSEC] 20 mg PO DAILY 04/12/14 05/15/17 History Aspirin 325 mg PO DAILY 07/13/16 05/15/17 History Atorvastatin Calcium [Lipitor] 20 mg PO HS 07/13/16 05/15/17 History Albuterol Nebulized [Ventolin 2.5 mg INHALATION RT-Q6H PRN 12/29/16 05/15/17 History Nebulized] Albuterol Sulfate [Proair Hfa] 2 puff INHALATION RT-QID 02/12/17 05/15/17 History Tiotropium [place] [Spiriva] 1 cap INHALATION RT-DAILY 02/12/17 05/15/17 History Citalopram Hydrobromide 20 mg PO DAILY 05/16/17 05/16/17 History [Citalopram HBr] Allergies Allergy/AdvReac Type Severity Reaction Status Date / Time codeine Allergy Rapid Verified 05/15/17 20:44 Heart Rate meperidine HCl [From Demerol] Allergy Rapid Verified 05/15/17 20:44 Heart Rate morphine Allergy Rapid Verified 05/15/17 20:44 Heart Rate Physical Exam Vitals: Vital Signs Temp Pulse Pulse Resp BP BP Pulse Ox 05/16/17 08:15 101 H 05/16/17 08:03 98 95 05/16/17 08:00 100 18 05/16/17 04:00 97.8 F 100 18 100/55 95 05/16/17 00:23 98.3 F 111 H 18 105/53 95 05/16/17 00:00 16 05/15/17 21:59 98.4 F 83 16 138/75 96 05/15/17 20:13 90 05/15/17 20:02 88 97 05/15/17 20:00 16 05/15/17 19:44 98.5 F 91 18 140/71 96 05/15/17 19:19 97.7 F 89 17 148/72 98 05/15/17 18:32 92 17 151/74 97 05/15/17 17:00 98 16 139/81 97 05/15/17 16:16 94 16 174/95 95 05/15/17 15:36 91 16 05/15/17 15:28 90 16 05/15/17 14:59 99.8 F H 103 H 18 155/119 96 Intake and Output 05/15/17 05/16/17 05/16/17 22:59 06:59 14:59 Other: Voiding Method Toilet # Voids 1 Weight 92.9 kg Blood pressure 166/72 heart rate 109 afebrile maintaining oxygen saturation on room air GENERAL: This is a 62-year-old occasion female in no apparent distress at the time of my examination. Obese. HEENT: Head is atraumatic, normocephalic. Pupils are equal, round. Sclerae anicteric. Conjunctivae are clear. Mucous membranes of the mouth are moist. Neck is supple. There is no jugular venous distention. No carotid bruit is heard. LUNGS: Clear to auscultation no wheezes, rales or rhonchi. No chest wall tenderness is noted on palpation or with deep breathing. HEART: Regular rate and rhythm without murmurs, rubs or gallops. S1 and S2 heard. ABDOMEN: Soft, nontender. Bowel sounds are heard. No organomegaly noted. EXTREMITIES: No evidence of peripheral edema and no calf tenderness noted. VASCULAR: Radial and dorsalis pedis pulses palpated, no evidence of clubbing. NEUROLOGIC: Patient is awake, alert and oriented x3. Results 05/15/17 15:45 05/15/17 15:45 Cardiac Enzymes 05/15/17 05/15/17 05/15/17 Range/Units 15:45 15:45 21:53 AST 130 H (14-36) U/L CK-MB (CK-2) 0.7 0.6 (0.0-2.4) ng/mL Troponin I <0.012 <0.012 (0.000-0.034) ng/mL 05/16/17 Range/Units 03:44 AST (14-36) U/L CK-MB (CK-2) 0.6 (0.0-2.4) ng/mL Troponin I <0.012 (0.000-0.034) ng/mL Coagulation 05/15/17 Range/Units 15:45 PT 10.8 (9.0-12.0) sec APTT 25.1 (22.0-30.0) sec Lipids 05/16/17 Range/Units 03:44 Triglycerides 84 (<150) mg/dL Cholesterol 190 (<200) mg/dL HDL Cholesterol 50 (40-60) mg/dL CBC 05/15/17 Range/Units 15:45 WBC 6.4 (3.8-10.6) k/uL RBC 4.64 (3.80-5.40) m/uL Hgb 12.6 (11.4-16.0) gm/dL Hct 38.7 (34.0-46.0) % Plt Count 256 (150-450) k/uL Comprehensive Metabolic Panel 05/15/17 Range/Units 15:45 Sodium 139 (137-145) mmol/L Potassium 3.9 (3.5-5.1) mmol/L Chloride 105 (98-107) mmol/L Carbon Dioxide 24 (22-30) mmol/L BUN 8 (7-17) mg/dL Creatinine 0.60 (0.52-1.04) mg/dL Glucose 116 H (74-99) mg/dL Calcium 9.7 (8.4-10.2) mg/dL AST 130 H (14-36) U/L ALT 92 H (9-52) U/L Alkaline Phosphatase 102 (38-126) U/L Total Protein 7.4 (6.3-8.2) g/dL Albumin 4.2 (3.5-5.0) g/dL Current Medications Generic Name Dose Route Start Last Admin Trade Name Freq PRN Reason Stop Dose Admin Hydrocodone Bitart/Acetaminophen 1 each 05/15/17 22:21 05/15/17 23:21 [place] 5-325 PO 1 each Q6H PRN Administration Pain Albuterol/Ipratropium 3 ml 05/15/17 20:00 05/16/17 08:03 Duoneb 0.5 Mg-3 Mg/3 Ml Soln INHALATION 3 ml RT-QID HUSSAIN Administration Albuterol/Ipratropium 3 ml 05/15/17 16:54 Duoneb 0.5 Mg-3 Mg/3 Ml Soln INHALATION RT-Q4H PRN Shortness Of Breath Or Wheezing Aspirin 325 mg 05/16/17 09:00 Aspirin PO DAILY [facility] Atorvastatin Calcium 20 mg 05/15/17 22:30 05/15/17 23:58 Lipitor PO 20 mg HS HUSSAIN Administration Cyclobenzaprine HCl 10 mg 05/15/17 22:21 05/15/17 23:58 Flexeril PO 10 mg TID PRN Administration Spasms Methylprednisolone Sodium Succinate 60 mg 05/15/17 18:00 05/16/17 06:30 Solu-Medrol IV 60 mg Q6HR HUSSAIN Administration Naloxone HCl 0.2 mg 05/15/17 18:08 Narcan IV Q2M PRN Opioid Reversal Nitroglycerin 1 inch 05/15/17 18:00 05/16/17 06:29 Nitro-Bid Oint TOPICAL Not Given Q6HR [facility] Nitroglycerin 0.4 mg 05/15/17 16:54 Nitrostat SUBLINGUAL Q5M PRN Chest Pain Pantoprazole Sodium 20 mg 05/16/17 09:00 Protonix PO DAILY [facility] Sodium Chloride 10 ml 05/15/17 21:00 05/15/17 20:10 Saline Flush IV 10 ml BID HUSSAIN Administration Intake and Output 05/15/17 05/16/17 05/16/17 22:59 06:59 14:59 Other: Voiding Method Toilet # Voids 1 Weight 92.9 kg 05/15/17 15:45 05/15/17 15:45 Assessment and Plan Assessment: ASSESSMENT 1. Precordial chest pain, atypical. An acute coronary event has been ruled out with no EKG evidence of acute ischemia and negative cardiac enzymes. 2. Dyslipidemia 3. COPD 4. Elevated liver enzymes 5. Palpitations 6. Chronic tobacco abuse 7. Obesity PLAN Obtain 2-D echocardiogram and Doppler study to assess cardiac structure and function. Check TSH and free T4. Obtain to between stress echocardiogram to evaluate for stress-induced ischemia. Change aspirin to 81 mg daily and add small dose beta jaciel in the form of Toprol 25 mg daily. Discontinuous atorvastatin secondary to elevated liver enzymes. Further recommendations to follow based upon diagnostic test findings. Thank you kindly for this consultation. The above impression and plan of care have been discussed and directed by the signing physician. Morelia Santana, nurse practitioner, acting as scribe for signing physician.
[2017-05-16] MEDS: guaiFENesin SYRUP 100MG/5ML 200 MG/10 ML CUP PO PRN (18:54)
[2017-05-17] MEDS: methylPREDNISolone SOD SUCCI 125 MG/2 ML VIAL IV SCH ×3 (01:20→11:41)
[2017-05-17] MEDS: NITROGLYCERIN OINT 1 INCH/GM PACKET TOPICAL SCH ×2 (01:21→05:43)
[2017-05-17] MEDS: guaiFENesin SYRUP 100MG/5ML 200 MG/10 ML CUP PO PRN ×2 (02:12→12:34)
[2017-05-17] MEDS: HYDROcodone/APAP 5-325MG 1 EACH TAB PO PRN ×2 (03:31→11:43)
[2017-05-17 03:40] VITALS: RESP 16
[2017-05-17] MEDS ORDERED: DOBUTamine DRIP for NUC MED 250 MG in DEXTROSE/WATER 1 250ML.BAG IV ONE (07:00)
[2017-05-17] MEDS: IPRATROPIUM-ALBUTEROL 3 ML NEB INHALATION SCH ×2 (07:53→12:24)
[2017-05-17] MEDS ORDERED: METOPROLOL SUCCINATE (ER) 25 MG TAB.ER.24H PO SCH (09:00)
[2017-05-17] MEDS ORDERED: ASPIRIN 81 MG PO SCH (09:00)
[2017-05-17] MEDS ORDERED: CITALOPRAM HYDROBROMIDE 20 MG TAB PO SCH (09:00)
--- NOTE | 2017-05-17 10:43 | P.PN ---
Subjective Progress Note Date: 05/17/17 Mrs. Travis is seen and examined by myself along with Dr. Santa this morning. She is resting comfortably in bed with family at the bedside. She denies any further symptoms of chest pain since admission. Telemetry tracings have been unremarkable. Cardiac enzymes are negative x3. Blood pressure 136/68 herat rate 98 afebrile and maintain oxygen saturation on room air. Objective - Vital Signs Vital signs: Vital Signs Temp 98.6 F 05/17/17 08:00 Pulse 100 05/17/17 08:04 Resp 16 05/17/17 08:00 BP 136/62 05/17/17 08:00 Pulse Ox 95 05/17/17 08:00 Intake & Output 05/16/17 05/17/17 05/17/17 18:59 06:59 18:59 Other: Voiding Method Toilet Toilet Toilet # Voids 2 - Exam GENERAL: Well-appearing, well-nourished and in no acute distress. NECK: Supple without JVD or thyromegaly. LUNGS: Breath sounds clear to auscultation bilaterally. Respiration equal and unlabored. No wheezes, rales or rhonchi. HEART: Regular rate and rhythm without murmurs, rubs or gallops. S1 and S2 heard. EXTREMITIES: Normal range of motion, no edema. No clubbing or cyanosis. Peripheral pulses intact and strong. - Labs CBC & Chem 7: 05/15/17 15:45 05/15/17 15:45 Labs: Microbiology - Last 24 Hours (Table) 05/15/17 16:00 Urine Culture - Final Urine,Voided 05/15/17 15:45 Blood Culture - Preliminary Blood No Growth after 24 hours Assessment and Plan Assessment: ASSESSMENT 1. Precordial chest pain, atypical. An acute coronary event has been ruled out with no EKG evidence of acute ischemia and negative cardiac enzymes. 2. Dyslipidemia 3. COPD 4. Elevated liver enzymes 5. Palpitations 6. Chronic tobacco abuse 7. Obesity PLAN Continue with dobutamine stress echocardiogram as was previously ordered. If above diagnostic testing is negative she is stable from a cardiac perspective. Continue to hold atorvastatin and repeat liver enzymes in 1 week. Continue with Toprol and low dose aspirin. Follow up with Dr. Cardenas in 2-3 weeks. The above impression and plan of care have been discussed and directed by the signing physician. Morelia Santana, nurse practitioner, acting as scribe for signing physician.
[2017-05-17] MEDS: PANTOPRAZOLE 40 MG TABLET PO SCH (11:41)
[2017-05-17] MEDS: DOXYCYCLINE 50 MG CAP PO SCH (11:42)
--- NOTE | 2017-05-17 11:52 | ECHOS ---
STRESS ECHOCARDIOGRAM DATE OF SERVICE: 05/17/2017 DOBUTAMINE STRESS ECHO INDICATIONS: Chest pain. MEDICATIONS: BASELINE HEART RATE: 107 BASELINE BLOOD PRESSURE: 139/83 MAXIMUM HEART RATE: 138 MAXIMUM BLOOD PRESSURE: 150/57 85% MPHR: 136 100% MPHR: 160 METS: MAXIMUM STAGE REACHED: TOTAL EXERCISE TIME: CLINICAL INFORMATION: Baseline EKG revealed normal sinus rhythm without significant ST-T changes. Sinus tachycardia was noted. With dobutamine administration, the heart rate went up from 107 beats per minute to 138 beats per minute, which is 85% of predicted maximal. There was no angina or arrhythmia. Patient did not have any significant symptoms. This is a negative dobutamine stress test by EKG criteria. Baseline echo images revealed normal wall motion and wall thickening of all segments. With dobutamine administration, there was progressive increase in contractility of all segments suggesting that there is no evidence of any dobutamine induced ischemia. IMPRESSION: 1. By EKG criteria, this is an unremarkable dobutamine stress test without any EKG changes to suggest ischemia. Patient's heart rate was more than 85% of predicted maximal. 2. Normal dobutamine stress echocardiogram without evidence of ischemia. MMODL / IJN: [id number] /
[2017-05-17 12:29] VITALS: BP 160/95; TEMP 98.2
[2017-05-17] MEDS: CYCLOBENZAPRINE 10 MG TAB PO PRN (12:34)
[2017-05-17 12:37] VITALS: PULSE 100
--- NOTE | 2017-05-17 13:14 | P.DS ---
Providers Date of admission: 05/15/17 16:54 Expected date of discharge: 05/17/17 Attending physician: Sarah Souza MD Consults: 05/15/17 18:10 Consult Physician Routine Consulting Provider: Willi Cardenas Consult Reason/Comments: chest pain. Do you want consulting provider notified?: Yes Primary care physician: Alberto Hunt MD Hospital Course: 62-year-old female with history of COPD presented to the emergency department with difficulty in breathing. Patient was sick since last Wednesday, no reported sick contacts. She has been having pleuritic chest pain with the shortness of breath. She also has cough which is dry nonproductive. She has also been having subjective fevers and chills. No nausea or vomiting, no abdominal pain. No dizziness or diaphoresis. Patient was diagnosed with COPD last June, when she quit smoking. He has been on albuterol and Symbicort since then. In the emergency department she was slightly tachycardic and because of the chest pain she was admitted to the hospital for further evaluation and management. Laboratory findings revealed no leukocytosis, d-dimer was not elevated and because of that further workup for PE was not pursued. Because of the chest pain troponin was cycled and that came back within normal limits. She was watched on telemetry. He was also seen by cardiology service who elected to do a dobutamine stress test which came back within normal limits. Patient was treated with Solu-Medrol, doxycycline for the acute exacerbation of chronic obstructive pulmonary disease. She likely had bronchitis that caused a flareup. She was also treated with DuoNeb's as well as. Today she is feeling much better, she will be discharged home in a stable condition. She'll be prescribed doxycycline and Medrol Dosepak. Her liver function tests AST and ALTs were mildly elevated and because of that the statin was held and instructions were given to repeat LFTs in 1 week. The statin will be resumed in 1 week if the LFTs levels don't change. Patient was also started on aspirin and metoprolol by cardiology, those will be resumed as an outpatient. Plan - Discharge Summary New Discharge Prescriptions: New Aspirin 81 mg PO DAILY tab Metoprolol Succinate (ER) [Toprol XL] 25 mg PO DAILY #30 tab.er.24h Aspirin 81 mg PO DAILY chew Doxycycline [Vibramycin] 100 mg PO BID #10 cap guaiFENesin SYRUP 100MG/5ML [Robitussin] 200 mg PO Q6H PRN #20 cup PRN Reason: Cough methylPREDNISolone Dose Pack [Medrol Dose Pack] 4 mg PO DIRECTED #21 package Continue Omeprazole [PriLOSEC] 20 mg PO DAILY HYDROcodone/APAP 5-325MG [[place] 5-325] 1 tab PO Q6H PRN PRN Reason: Pain Cyclobenzaprine [Flexeril] 10 mg PO TID PRN PRN Reason: Spasms Albuterol Nebulized [Ventolin Nebulized] 2.5 mg INHALATION RT-Q6H PRN PRN Reason: Shortness Of Breath Albuterol Sulfate [Proair Hfa] 2 puff INHALATION RT-QID Tiotropium [place] [Spiriva] 1 cap INHALATION RT-DAILY Citalopram Hydrobromide [Citalopram HBr] 20 mg PO DAILY Discontinued Aspirin 325 mg PO DAILY Atorvastatin Calcium [Lipitor] 20 mg PO HS Discharge Medication List Cyclobenzaprine [Flexeril] 10 mg PO TID PRN 04/12/14 [History] HYDROcodone/APAP 5-325MG [[place] 5-325] 1 tab PO Q6H PRN 04/12/14 [History] Omeprazole [PriLOSEC] 20 mg PO DAILY 04/12/14 [History] Albuterol Nebulized [Ventolin Nebulized] 2.5 mg INHALATION RT-Q6H PRN 12/29/16 [ History] Albuterol Sulfate [Proair Hfa] 2 puff INHALATION RT-QID 02/12/17 [History] Tiotropium [place] [Spiriva] 1 cap INHALATION RT-DAILY 02/12/17 [History] Citalopram Hydrobromide [Citalopram HBr] 20 mg PO DAILY 05/16/17 [History] Aspirin 81 mg PO DAILY chew 05/17/17 [Rx] Aspirin 81 mg PO DAILY tab 05/17/17 [Rx] Doxycycline [Vibramycin] 100 mg PO BID #10 cap 05/17/17 [Rx] Metoprolol Succinate (ER) [Toprol XL] 25 mg PO DAILY #30 tab.er.24h 05/17/17 [Rx ] guaiFENesin SYRUP 100MG/5ML [Robitussin] 200 mg PO Q6H PRN #20 cup 05/17/17 [Rx] methylPREDNISolone Dose Pack [Medrol Dose Pack] 4 mg PO DIRECTED #21 package 05/17/17 [Rx] Follow up Appointment(s)/Referral(s): Alberto Hunt MD [Primary Care Provider] - 1-2 days Willi Cardenas MD [STAFF PHYSICIAN] - 2 Weeks Ambulatory/Diagnostic Orders: ALT [LAB.AMB] Location: Determined By Patient AST [LAB.AMB] Time Frame: 1 Week, Location: Determined By Patient
--- NOTE | 2017-05-17 20:29 | ECHOF ---
Referral Reason: MEASUREMENTS -------- HEIGHT: 165.1 cm WEIGHT: 92.5 kg BP: 170/89 IVSd: 1.3 cm (0.6 - 1.1) LVIDd: 3.5 cm (3.9 - 5.3) LVPWd: 1.5 cm (0.6 - 1.1) IVSs: 1.8 cm LVIDs: 1.7 cm LVPWs: 1.7 cm Ao Diam: 3.2 cm (2.0 - 3.7) AV Cusp: 1.7 cm (1.5 - 2.6) LA Diam: 3.2 cm (2.7 - 3.8) MV EXCURSION: 18.395 mm (> 18.000) MV EF SLOPE: 114 mm/s (70 - 150) EPSS: 0.1 cm MV E Ricardo: 0.98 m/s MV DecT: 124 ms MV A Ricardo: 0.40 m/s MV E/A Ratio: 2.43 RAP: 5.00 mmHg RVSP: 16.53 mmHg FINDINGS -------- Resting tachycardia (HR>100bpm). This was a technically adequate study. The left ventricular size is normal. There is mild concentric left ventricular hypertrophy. Overa ll left ventricular systolic function is normal with, an EF between 55 - 60 %. The right ventricle is normal in size and function. The left atrium is normal in size. The right atrium is normal in size. Aortic valve is trileaflet and is mildly thickened. The mitral valve leaflets are mildly thickened. Mild mitral annular calcification present. There is trace mitral regurgitation. Trace tricuspid regurgitation present. The right ventricular systolic pressure, as measured by Dopp ler, is 16.53mmHg. Pulmonic valve appears structurally normal. The aortic root size is normal. The pericardium is normal. CONCLUSIONS -------- 1. Resting tachycardia (HR>100bpm). 2. This was a technically adequate study. 3. The left ventricular size is normal. 4. There is mild concentric left ventricular hypertrophy. 5. Overall left ventricular systolic function is normal with, an EF between 55 - 60 %. 6. The right ventricle is normal in size and function. 7. The left atrium is normal in size. 8. The right atrium is normal in size. 9. Aortic valve is trileaflet and is mildly thickened. 10. The mitral valve leaflets are mildly thickened. 11. Mild mitral annular calcification present. 12. There is trace mitral regurgitation. 13. Trace tricuspid regurgitation present. 14. The right ventricular systolic pressure, as measured by Doppler, is 16.53mmHg. 15. Pulmonic valve appears structurally normal. 16. The aortic root size is normal. 17. The pericardium is normal. SIGNALS COLLECTION TECHNICIAN: Yelena Sousa RDCS
== END 2017-05-17 14:18 | disposition home or self-care (01) ==
LOC: EC 14:55 → 3OBS 16:54
PROVIDERS: ADMIT Internal Medicine; ATTEND Internal Medicine
DX: J44.1 Chronic obstructive pulmonary disease with (acute) exacerbation (principal); J20.9 Acute bronchitis, unspecified; J44.0 Chronic obstructive pulmonary disease with (acute) lower respiratory infection; R74.8 Abnormal levels of other serum enzymes; L40.9 Psoriasis, unspecified; K21.9 Gastro-esophageal reflux disease without esophagitis; G89.29 Other chronic pain; E78.5 Hyperlipidemia, unspecified; M54.2 Cervicalgia; M54.9 Dorsalgia, unspecified; E66.9 Obesity, unspecified; Z68.33 Body mass index [BMI] 33.0-33.9, adult; G10 Huntington's disease; M19.90 Unspecified osteoarthritis, unspecified site; Z87.891 Personal history of nicotine dependence; Z79.82 Long term (current) use of aspirin; Z79.899 Other long term (current) drug therapy; Z88.5 Allergy status to narcotic agent; Z80.0 Family history of malignant neoplasm of digestive organs; Z82.49 Family history of ischemic heart disease and other diseases of the circulatory system; Z82.0 Family history of epilepsy and other diseases of the nervous system; Z87.01 Personal history of pneumonia (recurrent)
CPT/HCPCS: 36415; 71046; 80053; 80061; 81003; 82550; 82553; 83605; 84439; 84443; 84484; 85025; 85379; 85610; 85730; 87040; 87086; 87502; 93005; 93017; 93306; 93350; 94640; 94760; 96374; 96376; 99285

== ENCOUNTER → 2017-07-23 | Outpatient (CLI) | payer MEDICARE, OTHER ==
--- NOTE | 2017-07-23 07:56 | US ---
EXAMINATION TYPE: US abdomen limited DATE OF EXAM: 07/23/2017 COMPARISON: NONE CLINICAL HISTORY: R94.5 Abn liver function test. EXAM MEASUREMENTS: Liver Length: 17.3 cm Gallbladder Wall: 0.3 cm CBD: 0.5 cm Right Kidney: 12.6 x 4.1 x 5.4 cm Pancreas: not well visualized due to bowel gas Liver: difficult to penetrate, measures upper limits of normal. Mild fatty infiltration is not exclu ded. Gallbladder: No stones seen Evidence for sonographic Silva's sign: No CBD: wnl Right Kidney: No hydronephrosis or masses seen, limited visualization of lower pole due to bowel gas . IMPRESSION: 1. Right upper quadrant ultrasound is visualized appears within normal limits. There is limitation du e to bowel gas.
== END | disposition home or self-care (01) ==
LOC: RADUSWWP 06:47
PROVIDERS: ATTEND Family Medicine
DX: R74.8 Abnormal levels of other serum enzymes (principal)
CPT/HCPCS: 76705

== ENCOUNTER → 2017-11-22 | Outpatient (CLI) | payer MEDICARE, OTHER ==
--- NOTE | 2017-11-22 09:38 | FL ---
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 TECHNIQUE: A double contrast esophagram is performed utilizing air and barium. A total of 27 second s of fluoroscopic time was utilized during procedure. A total of 41 images are saved to PACS during p rocedure. 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 The esophagus sh ows satisfactory motility and emptying into the stomach. A few abnormal secondary and tertiary contra ctions are present. A small sliding-type hiatal hernia was seen. No abnormal outpouching or diverticu lum is present. No suspicious intraluminal mass is seen. Single episode of gastroesophageal reflux in to the distal esophagus is noted. IMPRESSION: Small sliding-type hiatal hernia with identified gastroesophageal reflux into distal one third of esophagus and mild underlying esophageal dysmotility.
== END | disposition home or self-care (01) ==
LOC: RADFLWHC 08:07
PROVIDERS: ATTEND Internal Medicine Critical Care Medicine
DX: K44.9 Diaphragmatic hernia without obstruction or gangrene (principal); K21.9 Gastro-esophageal reflux disease without esophagitis; K22.4 Dyskinesia of esophagus; G10 Huntington's disease; Z88.5 Allergy status to narcotic agent
CPT/HCPCS: 74220

== ENCOUNTER → 2017-12-16 | Outpatient (CLI) | payer MEDICARE ==
--- NOTE | 2017-12-16 12:09 | FL ---
EXAMINATION TYPE: FL barium swallow w video DATE OF EXAM: 12/16/2017 MODIFIED SWALLOW / DEGLUTITION STUDY CLINICAL HISTORY: Dysphagia. TECHNIQUE: Deglutition study is performed utilizing thin liquid barium, honey and nectar thick liqui d barium, barium thick applesauce, and barium coated cracker. 1.36 minutes of fluoroscopy time was ut ilized with 0 fluoroscopic images saved as the examination was video recorded. COMPARISON: None. FINDINGS: The oral and pharyngeal phases show satisfactory initiation and propagation with all modali ties tested. Normal mastication is seen with solid modalities tested. There is no evidence of penet ration or aspiration with any modality tested. No significant pharyngeal residue was appreciated. IMPRESSION: Unremarkable deglutition study. Please refer to speech therapist notes for further detai ls if necessary.
== END | disposition home or self-care (01) ==
LOC: RADFLMAIN 10:42
PROVIDERS: ATTEND Internal Medicine Critical Care Medicine
DX: G10 Huntington's disease (principal)
CPT/HCPCS: 74230

== ENCOUNTER 2018-02-18 11:29 | Observation (INO) | payer MEDICARE, OTHER ==
--- NOTE | 2018-02-18 12:24 | XR ---
EXAMINATION TYPE: XR chest 2V DATE OF EXAM: 02/18/2018 COMPARISON: 05/15/2018 HISTORY: Shortness of breath TECHNIQUE: Frontal and lateral views of the chest are obtained. FINDINGS: Scattered senescent parenchymal changes noted. Hyperinflation compatible with COPD. No evidence for infiltrate. No evidence for atelectasis. Heart size is stable. Mediastinal structures are stable and grossly unremarkable. No evidence for hilar prominence. Degenerative changes dorsal spine. IMPRESSION: 1. No evidence for acute pulmonary disease.
--- NOTE | 2018-02-18 12:27 | ED ---
General Adult HPI - General Chief complaint: Chest Pain Stated complaint: CHEST PAIN, RT ARM NUMBNESS Source: patient Mode of arrival: ambulatory Limitations: no limitations - History of Present Illness Initial comments: Dictation was produced using [employer] dictation software. please excuse any grammatical, word or spelling errors. Chief Complaint: 62-year-old female past medical history of Posen 's disease, COPD percents with intermittent substernal chest pain 5 days. History of Present Illness: 62-year-old female presents with intermittent chest pain 5 days. Patient states that her pain has been intermittent and ongoing for 5 days. It is located substernally. She status state it is dull however there is some sharp episodes associated with it. Patient states she's had medical attention today because of some paresthesias to the right upper extremity. Patient reports that her symptoms occur at rest. Slight exacerbated by exertion. She denies any cardiac history. The ROS documented in this emergency department record has been reviewed and confirmed by me. Those systems with pertinent positive or negative responses have been documented in the HPI. All other systems are other negative and/or noncontributory. - Related Data Home Medications Medication Instructions Recorded Confirmed Cyclobenzaprine [Flexeril] 10 mg PO DAILY PRN 04/12/14 02/18/18 HYDROcodone/APAP 5-325MG [[place] 1 tab PO Q6H PRN 04/12/14 02/18/18 5-325] Omeprazole [PriLOSEC] 20 mg PO DAILY 04/12/14 02/18/18 Albuterol Nebulized [Ventolin 2.5 mg INHALATION RT-Q6H PRN 12/29/16 02/18/18 Nebulized] Albuterol Sulfate [Proair Hfa] 2 puff INHALATION RT-QID 02/12/17 02/18/18 Aspirin 325 mg PO DAILY 02/18/18 02/18/18 Cetirizine HCl 10 mg PO HS 02/18/18 02/18/18 Citalopram Hydrobromide 40 mg PO DAILY 02/18/18 02/18/18 [Citalopram HBr] LORazepam [Ativan] 0.5 mg PO BID PRN 02/18/18 02/18/18 Losartan [Cozaar] 50 mg PO DAILY 02/18/18 02/18/18 Sulfamethox-Tmp 800-160Mg [Bactrim 1 tab PO Q12HR 02/18/18 02/18/18 DS 800-160 mg] Tiotropium [place] [Spiriva] 1 cap INHALATION RT-DAILY 02/18/18 02/18/18 Allergies Allergy/AdvReac Type Severity Reaction Status Date / Time codeine Allergy Rapid Verified 02/18/18 11:56 Heart Rate meperidine HCl [From Demerol] Allergy Rapid Verified 02/18/18 11:56 Heart Rate morphine Allergy Rapid Verified 02/18/18 11:56 Heart Rate Review of Systems ROS Statement: Those systems with pertinent positive or pertinent negative responses have been documented in the HPI. ROS Other: All systems not noted in ROS Statement are negative. Past Medical History Past Medical History: Asthma, COPD, GERD/Reflux, Hyperlipidemia, Osteoarthritis (OA), Pneumonia, Skin Disorder Additional Past Medical History / Comment(s): COPD, chronic back pain, chronic neck pain and the patient has undergone previous cervical spine surgery on the neck, psoriasis, osteoarthritis, hyperlipidemia. Posen disease. History of Any Multi-Drug Resistant Organisms: None Reported Past Surgical History: Appendectomy, Orthopedic Surgery, Tonsillectomy, Tubal Ligation Additional Past Surgical History / Comment(s): cervical fusion with plate and screws, EGD, colonoscopies. Past Anesthesia/Blood Transfusion Reactions: Motion Sickness Past Psychological History: No Psychological Hx Reported Smoking Status: Former smoker Past Alcohol Use History: None Reported Past Drug Use History: None Reported - Past Family History Father Family Medical History: Cancer Additional Family Medical History / Comment(s): Father of colon cancer at the age of 57yrs. Mother Family Medical History: Congestive Heart Failure (CHF), Neurologic Disorder Additional Family Medical History / Comment(s): Mother of CHF at the age of 63yrs. She had Jag's dx. General Exam - General Exam Comments Initial Comments: PHYSICAL EXAM: General Impression: Alert and oriented x3, not in acute distress HEENT: Normocephalic atraumatic, extra-ocular movements intact, pupils equal and reactive to light bilaterally, mucous membranes moist. Cardiovascular: Heart regular rate and rhythm, S1&S2 audible, no murmurs, rubs or gallops Chest: Lungs clear to auscultation bilaterally, no rhonchi, no wheeze, no rales Abdomen: Bowel sounds present, abdomen soft, non-tender, non-distended, no organomegaly Musculoskeletal: Pulses present and equal in all extremities, no peripheral edema Motor: Power 5/5 bilaterally, no focal deficits noted Neurological: CN II-XII grossly intact, no focal motor or sensory deficits noted Skin: Intact with no visualized rashes Psych: Normal affect and mood Limitations: no limitations Course Vital Signs 02/18/18 02/18/18 02/18/18 11:32 11:43 12:00 Temperature 97.9 F Pulse Rate 96 92 92 Respiratory 20 15 20 Rate Blood Pressure 93/62 117/63 O2 Sat by Pulse 96 95 95 Oximetry 02/18/18 02/18/18 12:30 13:00 Temperature Pulse Rate 90 87 Respiratory 20 18 Rate Blood Pressure 104/61 101/71 O2 Sat by Pulse 98 98 Oximetry Medical Decision Making - Medical Decision Making ED course: 64-year-old female presents with atypical chest pain with typical features. As upon arrival shows blood pressure 93/60, worse vital signs within normal limits. Physical examination is benign. Patient is in no acute distress. EKG does not show any signs of ischemia or infarction.Lab return evaluation obtained. CBC, cardiac panel, metabolic panel obtained. Sodium 129, patient has mild gap acidosis. She is given intravenous fluids. Magnesium is 1.5. Patient given magnesium IV. Cardiac Enzymes are negative. She given aspirin. X-rays unremarkable. She appears mildly dehydrated. Which I believe what is causing the mild gap acidosis. Patient be admitted to observation unit for IV fluid, so troponins and cardiology consultation. EKG Interpretation: A 12 lead EKG was obtained. It was interpreted by myself and attending physician. There is a P wave before every QRS complex. Rate is 92. Rhythm is normal sinus rhythm, IN interval 170, QS 96, QTC 509. QT is not prolonged. No ST segment depression or elevation. Overall, this EKG is unremarkable - Lab Data Result diagrams: 02/18/18 11:53 02/18/18 11:53 Lab Results 02/18/18 02/18/18 02/18/18 Range/Units 11:53 11:53 11:53 WBC 6.2 (3.8-10.6) k/uL RBC 4.32 (3.80-5.40) m/uL Hgb 11.6 (11.4-16.0) gm/dL Hct 36.9 (34.0-46.0) % MCV 85.5 (80.0-100.0) fL MCH 27.0 (25.0-35.0) pg MCHC 31.5 (31.0-37.0) g/dL RDW 14.7 (11.5-15.5) % Plt Count 232 (150-450) k/uL Neutrophils % 81 % Lymphocytes % 9 % Monocytes % 2 % Eosinophils % 4 % Basophils % 1 % Neutrophils # 5.0 (1.3-7.7) k/uL Lymphocytes # 0.6 L (1.0-4.8) k/uL Monocytes # 0.2 (0-1.0) k/uL Eosinophils # 0.3 (0-0.7) k/uL Basophils # 0.0 (0-0.2) k/uL PT (9.0-12.0) sec INR (<1.2) APTT (22.0-30.0) sec Sodium 129 L (137-145) mmol/L Potassium 3.8 (3.5-5.1) mmol/L Chloride 99 (98-107) mmol/L Carbon Dioxide 16 L (22-30) mmol/L Anion Gap 14 mmol/L BUN 12 (7-17) mg/dL Creatinine 0.98 (0.52-1.04) mg/dL Est GFR (CKD-EPI)AfAm 73 (>60 ml/min/1.73 sqM) Est GFR (CKD-EPI)NonAf 63 (>60 ml/min/1.73 sqM) Glucose 183 H (74-99) mg/dL Calcium 8.7 (8.4-10.2) mg/dL Magnesium 1.5 L (1.6-2.3) mg/dL Total Bilirubin 0.6 (0.2-1.3) mg/dL AST 53 H (14-36) U/L ALT 51 (9-52) U/L Alkaline Phosphatase 69 (38-126) U/L Total Creatine Kinase 69 (30-135) U/L CK-MB (CK-2) 0.7 (0.0-2.4) ng/mL CK-MB (CK-2) Rel Index 1.0 Troponin I <0.012 (0.000-0.034) ng/mL Total Protein 6.8 (6.3-8.2) g/dL Albumin 3.6 (3.5-5.0) g/dL 02/18/18 Range/Units 11:53 WBC (3.8-10.6) k/uL RBC (3.80-5.40) m/uL Hgb (11.4-16.0) gm/dL Hct (34.0-46.0) % MCV (80.0-100.0) fL MCH (25.0-35.0) pg MCHC (31.0-37.0) g/dL RDW (11.5-15.5) % Plt Count (150-450) k/uL Neutrophils % % Lymphocytes % % Monocytes % % Eosinophils % % Basophils % % Neutrophils # (1.3-7.7) k/uL Lymphocytes # (1.0-4.8) k/uL Monocytes # (0-1.0) k/uL Eosinophils # (0-0.7) k/uL Basophils # (0-0.2) k/uL PT 11.3 (9.0-12.0) sec INR 1.1 (<1.2) APTT 26.6 (22.0-30.0) sec Sodium (137-145) mmol/L Potassium (3.5-5.1) mmol/L Chloride (98-107) mmol/L Carbon Dioxide (22-30) mmol/L Anion Gap mmol/L BUN (7-17) mg/dL Creatinine (0.52-1.04) mg/dL Est GFR (CKD-EPI)AfAm (>60 ml/min/1.73 sqM) Est GFR (CKD-EPI)NonAf (>60 ml/min/1.73 sqM) Glucose (74-99) mg/dL Calcium (8.4-10.2) mg/dL Magnesium (1.6-2.3) mg/dL Total Bilirubin (0.2-1.3) mg/dL AST (14-36) U/L ALT (9-52) U/L Alkaline Phosphatase (38-126) U/L Total Creatine Kinase (30-135) U/L CK-MB (CK-2) (0.0-2.4) ng/mL CK-MB (CK-2) Rel Index Troponin I (0.000-0.034) ng/mL Total Protein (6.3-8.2) g/dL Albumin (3.5-5.0) g/dL Disposition Clinical Impression: Dehydration, Chest pain Disposition: ADMITTED IP TO THIS HOSP Condition: Fair Referrals: Alberto Hunt MD [Primary Care Provider] - 1-2 days Decision Time: 13:26
[2018-02-18 12:38] LABS: INR 1.1 (<1.2); Partial Thromboplastin Time 26.6 sec (22.0-30.0); Prothrombin Time 11.3 sec (9.0-12.0)
[2018-02-18 12:39] LABS: Albumin 3.6 g/dL (3.5-5.0); Calcium 8.7 mg/dL (8.4-10.2); Magnesium 1.5 mg/dL (1.6-2.3); Potassium 3.8 mmol/L (3.5-5.1); Total Bilirubin 0.6 mg/dL (0.2-1.3); Total Protein 6.8 g/dL (6.3-8.2)
[2018-02-18 12:40] LABS: Basophils % (A) 1 %; Eosinophils # (A) 0.3 k/uL (0-0.7); Eosinophils % (A) 4 %; HCT 36.9 % (34.0-46.0); HGB 11.6 gm/dL (11.4-16.0); Lymphocytes # (A) 0.6 k/uL (1.0-4.8); Lymphocytes % (A) 9 %; MCHC 31.5 g/dL (31.0-37.0); MCV 85.5 fL (80.0-100.0); Monocytes # (A) 0.2 k/uL (0-1.0); Monocytes % (A) 2 %; Neutrophils % (A) 81 %; Platelet Count 232 k/uL (150-450); RBC 4.32 m/uL (3.80-5.40); RDW 14.7 % (11.5-15.5); WBC 6.2 k/uL (3.8-10.6)
[2018-02-18 12:53] LABS: Creatine Kinase 69 U/L (30-135)
[2018-02-18 13:06] LABS: Creatine Kinase MB 0.7 ng/mL (0.0-2.4); Troponin I <0.012 ng/mL (0.000-0.034)
[2018-02-18] MEDS ORDERED: NALOXONE 0.4 MG/ML 1 ML VIAL IV PRN (13:20)
[2018-02-18] MEDS ORDERED: SODIUM CHLORIDE 0.9% 1,000 ML IV STA (13:20)
[2018-02-18] MEDS ORDERED: ASPIRIN 81 MG PO STA (13:22)
[2018-02-18] MEDS ORDERED: NITROGLYCERIN SL TABS 0.4 MG TAB SUBLINGUAL PRN (13:22)
[2018-02-18] MEDS: MAGNESIUM SULFATE-D5W PMX 1 GM in DEXTROSE/WATER 1 100ML.BAG IVPB SCH ×2 (13:44→15:17)
[2018-02-18] MEDS ORDERED: HYDROcodone/APAP 5-325MG 1 EACH TAB PO STA (15:28)
[2018-02-18] MEDS: SODIUM CHLORIDE 0.9% 1,000 ML IV SCH (17:28)
[2018-02-18 18:32] LABS: Creatine Kinase 68 U/L (30-135)
[2018-02-18 18:41] LABS: Troponin I <0.012 ng/mL (0.000-0.034)
[2018-02-18] MEDS ORDERED: ACETAMINOPHEN TAB 325 MG TAB PO PRN (19:55)
[2018-02-18] MEDS ORDERED: HYDROcodone/APAP 5-325MG 1 EACH TAB PO PRN (20:25)
[2018-02-19] LABS: Creatine Kinase 77 U/L (30-135)
[2018-02-19 00:13] LABS: Creatine Kinase MB 1.4 ng/mL (0.0-2.4); Troponin I <0.012 ng/mL (0.000-0.034)
[2018-02-19 00:36] LABS: Cholesterol 218 mg/dL (<200); HDL Cholesterol 22 mg/dL (40-60); LDL Cholesterol,Calculated 129 mg/dL (0-99); Triglycerides 335 mg/dL (<150)
[2018-02-19 08:08] LABS: Anion Gap 9 mmol/L; Blood Urea Nitrogen 10 mg/dL (7-17); Calcium 8.8 mg/dL (8.4-10.2); Carbon Dioxide 22 mmol/L (22-30); Chloride 103 mmol/L (98-107); Glucose 133 mg/dL (74-99); Magnesium 2.2 mg/dL (1.6-2.3); Potassium 4.6 mmol/L (3.5-5.1); Sodium 134 mmol/L (137-145)
--- NOTE | 2018-02-19 08:08 | P.CRDCN ---
History of Present Illness Consult date: 02/19/18 Requesting physician: Duc Suarez Consult reason: chest pain Chief complaint: Chest pain History of present illness: This is a pleasant 62-year-old female with past medical history significant for COPD, GERD, hypertension, hyperlipidemia. Patient states that she had been on statins in the past but because of liver abnormality this has been discontinued. hiatal hernia, hyperlipidemia, [place] disease, prior history of smoking, she states that she quit smoking approximately one year ago. She was in the hospital in April of this year which time she underwent a dobutamine echocardiographic study that was negative for any reversible ischemia. She also had an echo performed on that visit which revealed a normal left ventricular systolic function. She presents to the hospital on this occasion with symptoms of midsternal chest discomfort which starts off as a burning and ultimately feels like an ache, she also states that she had some discomfort in her right arm. Patient states she coughs a lot, and has significant difficulty in swallowing. Patient did undergo a barium swallow on November 22 which revealed a small sliding type hiatal hernia with GERD into distal one third of the esophagus and mild underlying esophageal dysmotility. Blood pressure on arrival 93/60, heart rate in the 90s, 96% on room air. Blood pressure this morning 96/50, heart rate in the 60s, 96% on room air. CBC is normal, sodium 129, potassium 3.8, BUN 12, creatinine 0.9, magnesium 1.5. Troponins negative 3. Cholesterol 218, triglycerides 235, LDL 129, HDL 22. Chest x-ray does not reveal any acute pulmonary disease. EKG shows normal sinus rhythm with no acute changes. Past Medical History Past Medical History: Asthma, Chest Pain / Angina, COPD, GERD/Reflux, Hyperlipidemia, Osteoarthritis (OA), Pneumonia, Skin Disorder Additional Past Medical History / Comment(s): COPD, stress test 2017,chronic back pain-2 herniated lumbar disc's, chronic neck pain and the patient has undergone previous cervical spine surgery on the neck, psoriasis, osteoarthritis , hyperlipidemia. dx w/[place] disease in 2016 .multiple falls,unsteady when up.recently started using a walker, "herniated esophagus" History of Any Multi-Drug Resistant Organisms: None Reported Past Surgical History: Appendectomy, Orthopedic Surgery, Tonsillectomy, Tubal Ligation Additional Past Surgical History / Comment(s): cervical fusion with plate and screws, EGD's, colonoscopies. Past Anesthesia/Blood Transfusion Reactions: Motion Sickness Additional Past Anesthesia/Blood Transfusion Reaction / Comment(s): "has never received any blood transfusions" Smoking Status: Former smoker - Past Family History Father Family Medical History: Cancer Additional Family Medical History / Comment(s): Father of colon cancer at the age of 57yrs. Mother Family Medical History: Congestive Heart Failure (CHF), Neurologic Disorder Additional Family Medical History / Comment(s): Mother of CHF at the age of 63yrs. She had [place]'s dx. Medications and Allergies Home Medications Medication Instructions Recorded Confirmed Type Cyclobenzaprine [Flexeril] 10 mg PO DAILY PRN 04/12/14 02/18/18 History HYDROcodone/APAP 5-325MG [[place] 1 tab PO Q6H PRN 04/12/14 02/18/18 History 5-325] Omeprazole [PriLOSEC] 20 mg PO DAILY 04/12/14 02/18/18 History Albuterol Nebulized [Ventolin 2.5 mg INHALATION RT-Q6H PRN 12/29/16 02/18/18 History Nebulized] Albuterol Sulfate [Proair Hfa] 2 puff INHALATION RT-QID 02/12/17 02/18/18 History Aspirin 325 mg PO DAILY 02/18/18 02/18/18 History Cetirizine HCl 10 mg PO HS 02/18/18 02/18/18 History Citalopram Hydrobromide 40 mg PO DAILY 02/18/18 02/18/18 History [Citalopram HBr] LORazepam [Ativan] 0.5 mg PO BID PRN 02/18/18 02/18/18 History Losartan [Cozaar] 50 mg PO DAILY 02/18/18 02/18/18 History Sulfamethox-Tmp 800-160Mg [Bactrim 1 tab PO Q12HR 02/18/18 02/18/18 History DS 800-160 mg] Tiotropium [place] [Spiriva] 1 cap INHALATION RT-DAILY 02/18/18 02/18/18 History Allergies Allergy/AdvReac Type Severity Reaction Status Date / Time codeine Allergy Rapid Verified 02/18/18 11:56 Heart Rate meperidine HCl [From Demerol] Allergy Rapid Verified 02/18/18 11:56 Heart Rate morphine Allergy Rapid Verified 02/18/18 11:56 Heart Rate Physical Exam Vitals: Vital Signs Temp Pulse Pulse Resp BP BP Pulse Ox 02/19/18 03:23 98.0 F 67 15 96/58 96 02/19/18 03:15 16 02/19/18 00:00 16 02/18/18 23:31 98.1 F 101 H 15 110/62 95 02/18/18 20:00 16 02/18/18 18:47 96.9 F L 96 15 112/59 99 02/18/18 16:45 98.0 F 82 20 108/64 97 02/18/18 16:00 98.1 F 94 18 132/67 94 L 02/18/18 14:00 85 15 94/66 93 L 02/18/18 13:00 87 18 101/71 98 02/18/18 12:30 90 20 104/61 98 02/18/18 12:00 92 20 117/63 95 02/18/18 11:43 92 15 95 02/18/18 11:32 97.9 F 96 20 93/62 96 Intake and Output 02/18/18 02/19/18 02/19/18 22:59 06:59 14:59 Intake Total 240 Balance 240 Intake: Oral 240 Other: # Voids 1 1 PHYSICAL EXAMINATION: GENERAL: 62-year-old female in no acute distress at the time of my examination HEENT: Head is atraumatic, normocephalic. Pupils equal, round. Sclera anicteric. Conjunctiva are clear. Mucous membranes of the mouth are moist. Neck is supple. There is no elevated jugular venous pressure. No carotid bruit is heard. HEART EXAMINATION: Heart S1, S2 normal. No murmur or gallop heard. CHEST EXAMINATION: Lungs are clear to auscultation and precussion. Positive chest wall and epigastric tenderness is noted on palpation and with deep breathing. ABDOMEN: Soft, nontender. Bowel sounds are heard. No organomegaly noted. EXTREMITIES: 2+ peripheral pulses with no evidence of peripheral edema and no calf tenderness noted. NEUROLOGIC patient is awake, alert and oriented 3 . . Results 02/18/18 11:53 02/18/18 11:53 Cardiac Enzymes 02/18/18 02/18/18 02/18/18 Range/Units 11:53 11:53 17:50 AST 53 H (14-36) U/L CK-MB (CK-2) 0.7 1.0 (0.0-2.4) ng/mL Troponin I <0.012 <0.012 (0.000-0.034) ng/mL 02/18/18 Range/Units 23:19 AST (14-36) U/L CK-MB (CK-2) 1.4 (0.0-2.4) ng/mL Troponin I <0.012 (0.000-0.034) ng/mL Coagulation 02/18/18 Range/Units 11:53 PT 11.3 (9.0-12.0) sec APTT 26.6 (22.0-30.0) sec Lipids 02/18/18 Range/Units 11:53 Triglycerides 335 H (<150) mg/dL Cholesterol 218 H (<200) mg/dL HDL Cholesterol 22 L (40-60) mg/dL CBC 02/18/18 Range/Units 11:53 WBC 6.2 (3.8-10.6) k/uL RBC 4.32 (3.80-5.40) m/uL Hgb 11.6 (11.4-16.0) gm/dL Hct 36.9 (34.0-46.0) % Plt Count 232 (150-450) k/uL Comprehensive Metabolic Panel 02/18/18 Range/Units 11:53 Sodium 129 L (137-145) mmol/L Potassium 3.8 (3.5-5.1) mmol/L Chloride 99 (98-107) mmol/L Carbon Dioxide 16 L (22-30) mmol/L BUN 12 (7-17) mg/dL Creatinine 0.98 (0.52-1.04) mg/dL Glucose 183 H (74-99) mg/dL Calcium 8.7 (8.4-10.2) mg/dL AST 53 H (14-36) U/L ALT 51 (9-52) U/L Alkaline Phosphatase 69 (38-126) U/L Total Protein 6.8 (6.3-8.2) g/dL Albumin 3.6 (3.5-5.0) g/dL Current Medications Generic Name Dose Route Start Last Admin Trade Name Freq PRN Reason Stop Dose Admin Acetaminophen 650 mg 02/18/18 19:55 Tylenol Tab PO Q4HR PRN Fever and/ or Pain Hydrocodone Bitart/Acetaminophen 1 each 02/18/18 20:25 02/18/18 20:44 [place]red 5-325 PO 1 each Q6HR PRN Administration Moderate Pain Aspirin 325 mg 02/19/18 09:00 Aspirin PO DAILY HUSSAIN Sodium Chloride 1,000 mls @ 20 mls/hr 02/18/18 13:30 02/18/18 17:28 Saline 0.9% IV Not Given .Q24H HUSSAIN Naloxone HCl 0.2 mg 02/18/18 13:20 Narcan IV Q2M PRN Opioid Reversal Nitroglycerin 0.4 mg 02/18/18 13:22 Nitrostat SUBLINGUAL Q5M PRN Chest Pain Intake and Output 02/18/18 02/19/18 02/19/18 22:59 06:59 14:59 Intake Total 240 Balance 240 Intake: Oral 240 Other: # Voids 1 1 02/18/18 11:53 02/18/18 11:53 EKG Interpretations (text) EKG shows normal sinus rhythm with no acute changes. Assessment and Plan Plan: Assessment and plan #1 chest pain with atypical features for acute coronary syndrome. Dobutamine echocardiographic study performed in April of this year was negative for any reversible ischemia, echo performed at that time revealed a normal left ventricular systolic function. Patient does have a documented hiatal hernia with GERD symptoms could be secondary to that. #2 [place] disease #3 hypertension #4 hyperlipidemia, unable to tolerate statins because of abnormal liver enzymes. #5 history of nicotine dependence #6 COPD #7 hiatal hernia and GERD #8 Hypomagnesemia #9 hyponatremia Plan We will perform a repeat echocardiogram with Doppler study. Decrease aspirin 81 mg daily. Replace magnesium. Start the patient on Crestor. Further recommendations to follow. DNP note has been reviewed, I agree with a documented findings and plan of care. Patient was seen and examined.
[2018-02-19 08:59] VITALS: RESP 18
[2018-02-19] MEDS ORDERED: ASPIRIN 325 MG TAB PO SCH (09:00)
[2018-02-19] MEDS ORDERED: ASPIRIN 81 MG PO SCH (09:00)
[2018-02-19] MEDS: ATORVASTATIN 20 MG TAB PO SCH (09:49)
[2018-02-19] MEDS ORDERED: LORazepam 0.5 MG TAB PO PRN (12:17)
[2018-02-19] MEDS ORDERED: CYCLOBENZAPRINE 10 MG TAB PO PRN (12:17)
[2018-02-19] MEDS ORDERED: HYDROcodone/APAP 5-325MG 1 EACH TAB PO PRN (12:17)
[2018-02-19] MEDS ORDERED: ALBUTEROL NEBULIZED 2.5 MG/3 ML INHALATION PRN (12:17)
--- NOTE | 2018-02-19 13:21 | HP ---
HISTORY AND PHYSICAL CHIEF COMPLAINT: Atypical chest pain. HISTORY OF PRESENT ILLNESS: This is the first known admission for this 62-year-old white female. She has Montalba's disease. She presented to the emergency room with chest pain which she describes as a squeezing and associated with some numbness in the right arm. Evaluation in the emergency room was essentially unremarkable. Chest x-ray was normal. She does have a history of COPD as well. Because of the discomfort, it was decided she should be admitted for observation and further cardiac enzymes. MEDICATIONS: Medications that she takes include Flexeril, Vicodin, omeprazole, Ventolin, aspirin, Zyrtec, citalopram, lorazepam, losartan, Bactrim, and Spiriva. ALLERGIES: SHE IS ALLERGIC TO CODEINE, DEMEROL AND MORPHINE. All other laboratory studies in the emergency room were unremarkable. Blood sugar slightly high 183. AST was slightly elevated at 53. REVIEW OF SYSTEMS: She denied any focal neurologic deficits, change in vision or hearing, cough, hemoptysis, sputum production, pleurisy, murmurs, rheumatic fever, prior history of heart disease, family history of heart disease, abdominal pain, melena, hematochezia, nausea, vomiting, hematemesis. She does have apparently a hiatal hernia. She has had no renal disease, renal failure, dysuria, frequency, urgency, incontinence, known history of diabetes, etc. Past medical history, family history and personal and social histories are unremarkable otherwise. She has had a procedure on the right wrist, hysterectomy and procedure for cervical spine fracture. AT HOME MEDICATIONS: She uses a nebulizer with albuterol and albuterol MDI, aspirin, Zyrtec, Celexa, Flexeril, Vicodin, Ativan, omeprazole, Bactrim and Spiriva. The patient is a FULL CODE. PHYSICAL EXAM: VITAL SIGNS: Blood pressure 110/62, pulse of 101 and regular, respirations of 15 and temperature 98.1. GENERAL: She appeared to be slightly overweight and in no acute distress. SKIN: Color is normal. Skin is warm, dry. Lymph nodes not enlarged. HEENT: Head, ears, eyes, nose, mouth, and throat were normal. NECK: Veins not distended. Thyroid not enlarged. CHEST is clear. CARDIOVASCULAR: Cardiac exam is normal. ABDOMEN is soft and nontender. EXTREMITIES: Normal. NEUROLOGICAL: Neurologically she intact. IMPRESSION: 1. Atypical chest pain. 2. Chronic obstructive pulmonary disease. 3. Montalba's disease. PLAN: 1. Bed rest. 2. IV fluids. 3. Serial EKGs and enzymes. MMODL / IJN: [id number] /
[2018-02-19] MEDS: IPRATROPIUM 0.5 MG/2.5 ML NEBU INHALATION SCH ×3 (16:21→20:23)
[2018-02-19] MEDS: SODIUM CHLORIDE 0.9% 1,000 ML IV SCH (17:01)
[2018-02-19] MEDS: SULFAMETHOX-TMP 800-160MG 1 EACH TAB PO SCH ×2 (17:01→20:19)
--- NOTE | 2018-02-19 17:08 | ECHOF ---
Referral Reason:chest pain MEASUREMENTS -------- HEIGHT: 170.2 cm WEIGHT: 93.0 kg BP: RVIDd: 3.1 cm (< 3.3) IVSd: 1.5 cm (0.6 - 1.1) LVIDd: 2.9 cm (3.9 - 5.3) LVPWd: 1.1 cm (0.6 - 1.1) IVSs: 1.6 cm LVIDs: 3.0 cm LVPWs: 1.2 cm Ao Diam: 3.3 cm (2.0 - 3.7) AV Cusp: 1.9 cm (1.5 - 2.6) LA Diam: 3.7 cm (2.7 - 3.8) MV EXCURSION: 15.618 mm (> 18.000) MV EF SLOPE: 105 mm/s (70 - 150) EPSS: 0.5 cm MV E Ricardo: 0.57 m/s MV DecT: 283 ms MV A Ricardo: 0.98 m/s MV E/A Ratio: 0.58 RAP: 5.00 mmHg RVSP: 35.30 mmHg FINDINGS -------- Sinus rhythm. This was a techncally difficult study with suboptimal views, , Lumason utilized for enhancement of im ages. There is moderate concentric left ventricular hypertrophy. Overall left ventricular systolic functi on is normal with, an EF between 55 - 60 %. The right ventricle is mildly enlarged. The left atrial size is normal. The right atrial size is normal. 5.0mg OF Lumason UTLIZED: 2 OR MORE WALL SEGMENTS NOT VISUALIZED. There is mild aortic valve sclerosis. There is no evidence of aortic regurgitation. Mild mitral annular calcification present. Mild mitral regurgitation is present. Mild tricuspid regurgitation present. There is mild pulmonary hypertension. The right ventricular systolic pressure, as measured by Doppler, is 35.30mmHg. The pulmonic valve was not well visualized. There is no pericardial effusion. CONCLUSIONS -------- 1. This was a techncally difficult study with suboptimal views, , Lumason utilized for enhancement of images. 2. There is moderate concentric left ventricular hypertrophy. 3. Overall left ventricular systolic function is normal with, an EF between 55 - 60 %. 4. The right ventricle is mildly enlarged. 5. The left atrial size is normal. 6. The right atrial size is normal. 7. 5.0mg OF Lumason UTLIZED: 2 OR MORE WALL SEGMENTS NOT VISUALIZED. 8. There is mild aortic valve sclerosis. 9. Mild mitral annular calcification present. 10. Mild mitral regurgitation is present. 11. Mild tricuspid regurgitation present. 12. There is mild pulmonary hypertension. 13. The right ventricular systolic pressure, as measured by Doppler, is 35.30mmHg. 14. The pulmonic valve was not well visualized. 15. There is no pericardial effusion. HYDRAULIC TECHNICIAN: Aydee Clifton RDCS
[2018-02-19] MEDS: MAGNESIUM SULFATE-D5W PMX 1 GM in DEXTROSE/WATER 1 100ML.BAG IVPB SCH ×2 (17:20→21:53)
--- NOTE | 2018-02-19 20:00 | DS ---
DISCHARGE SUMMARY CHIEF COMPLAINT: Atypical chest pain. HISTORY OF PRESENT ILLNESS AND PHYSICAL EXAM: The details of this lady's history and physical can be found laboratory section of her chart. COURSE IN HOSPITAL: After admission, she was placed on bedrest, started on intravenous fluids and she had serial EKGs and enzymes that were normal. She had no further problems with chest pain and did well. It was felt that she could go home on February 19, 2018. She will go home on her usual activity, diet and medication and follow up either with us or her own physician. FINAL DIAGNOSES: 1. Atypical chest pain. 2. [place]'s disease. OPERATIONS: None. CONSULTATION: None. She is improved. MMODL / IJN: [id number] /
[2018-02-19] MEDS ORDERED: DOCUSATE 100 MG CAP PO PRN (20:24)
[2018-02-19] MEDS ORDERED: LORATADINE 10 MG TAB PO SCH (21:00)
[2018-02-20] MEDS ORDERED: PANTOPRAZOLE 40 MG TABLET PO SCH (07:30)
[2018-02-20 07:32] VITALS: BP 141/70; TEMP 98.4
[2018-02-20] MEDS: IPRATROPIUM 0.5 MG/2.5 ML NEBU INHALATION SCH (07:37)
[2018-02-20 07:52] VITALS: PULSE 76
[2018-02-20] MEDS: ATORVASTATIN 20 MG TAB PO SCH (08:01)
[2018-02-20] MEDS: SULFAMETHOX-TMP 800-160MG 1 EACH TAB PO SCH (08:24)
[2018-02-20] MEDS ORDERED: CITALOPRAM HYDROBROMIDE 20 MG TAB PO SCH (09:00)
[2018-02-20] MEDS ORDERED: LOSARTAN 50 MG TAB PO SCH (09:00)
[2018-02-20] MEDS ORDERED: ASPIRIN 325 MG TAB PO SCH (09:00)
== END 2018-02-20 08:15 | disposition home or self-care (01) ==
LOC: EC 11:29 → 3SCARD 13:23 → 1SOBS 02-19 20:15
PROVIDERS: ADMIT Family Medicine; ATTEND Family Medicine
DX: R07.89 Other chest pain (principal); G10 Huntington's disease; E87.2 Acidosis; E86.0 Dehydration; E83.42 Hypomagnesemia; K44.9 Diaphragmatic hernia without obstruction or gangrene; K22.4 Dyskinesia of esophagus; E87.1 Hypo-osmolality and hyponatremia; I10 Essential (primary) hypertension; R20.0 Anesthesia of skin; R20.2 Paresthesia of skin; K21.9 Gastro-esophageal reflux disease without esophagitis; J44.9 Chronic obstructive pulmonary disease, unspecified; E78.5 Hyperlipidemia, unspecified; M47.9 Spondylosis, unspecified; L40.9 Psoriasis, unspecified; G89.29 Other chronic pain; M54.2 Cervicalgia; M54.9 Dorsalgia, unspecified; M19.90 Unspecified osteoarthritis, unspecified site; M51.26 Other intervertebral disc displacement, lumbar region; R29.6 Repeated falls; Z79.82 Long term (current) use of aspirin; Z79.899 Other long term (current) drug therapy; Z88.5 Allergy status to narcotic agent; Z87.01 Personal history of pneumonia (recurrent); Z98.1 Arthrodesis status; Z90.49 Acquired absence of other specified parts of digestive tract; Z98.51 Tubal ligation status; Z87.891 Personal history of nicotine dependence; Z80.0 Family history of malignant neoplasm of digestive organs; Z82.49 Family history of ischemic heart disease and other diseases of the circulatory system; Z82.0 Family history of epilepsy and other diseases of the nervous system
CPT/HCPCS: 96365; 96366; 99285; 36415; 94640 ×3; 94760; 93005; 80061; 80053; 80048; 82550; 82553; 83735 ×2; 84484; 85025; 85610; 85730; 71046; G0378 ×3; C8929; J3475; Q9950; 93306

== ENCOUNTER 2018-03-04 14:29 | Observation (INO) | payer MEDICARE, OTHER ==
[2018-03-04] MEDS ORDERED: IPRATROPIUM-ALBUTEROL 3 ML NEB INHALATION STA (14:38)
--- NOTE | 2018-03-04 14:42 | ED ---
SOB HPI - General Chief Complaint: Shortness of Breath Stated Complaint: dyspnea Time Seen by Provider: 03/04/18 14:29 Source: patient, EMS, RN notes reviewed Mode of arrival: EMS Limitations: no limitations - History of Present Illness Initial Comments: This is a 8-year-old female history of COPD on) AF GERD who was recently admitted and discharged for shortness of breath and states she's had shortness of breath since the day before [place]. She complains of a nonproductive cough some exertional shortness of breath he does take inhalers at home with no relief. She denies any fevers chills or sweats she also complains of sharp midsternal chest pain today he gets worse with movement and deep breathing. No other complaints at this time no other modifying factors she is a former smoker who quit about a year and a half ago. MD Complaint: shortness of breath, cough - Related Data Home Medications Medication Instructions Recorded Confirmed Cyclobenzaprine [Flexeril] 10 mg PO DAILY PRN 04/12/14 03/04/18 HYDROcodone/APAP 5-325MG [[place] 1 tab PO Q6H PRN 04/12/14 03/04/18 5-325] Omeprazole [PriLOSEC] 20 mg PO DAILY 04/12/14 03/04/18 Albuterol Nebulized [Ventolin 2.5 mg INHALATION RT-Q6H PRN 12/29/16 03/04/18 Nebulized] Albuterol Sulfate [Proair Hfa] 2 puff INHALATION RT-QID 02/12/17 03/04/18 Aspirin 325 mg PO DAILY 02/18/18 03/04/18 Cetirizine HCl 10 mg PO HS 02/18/18 03/04/18 Citalopram Hydrobromide 40 mg PO DAILY 02/18/18 03/04/18 [Citalopram HBr] LORazepam [Ativan] 0.5 mg PO BID PRN 02/18/18 03/04/18 Losartan [Cozaar] 50 mg PO DAILY 02/18/18 03/04/18 Tiotropium [place] [Spiriva] 1 cap INHALATION RT-DAILY 02/18/18 03/04/18 Allergies Allergy/AdvReac Type Severity Reaction Status Date / Time codeine Allergy Rapid Verified 03/04/18 15:13 Heart Rate meperidine HCl [From Demerol] Allergy Rapid Verified 03/04/18 15:13 Heart Rate morphine Allergy Rapid Verified 03/04/18 15:13 Heart Rate Review of Systems ROS Statement: Those systems with pertinent positive or pertinent negative responses have been documented in the HPI. ROS Other: All systems not noted in ROS Statement are negative. Past Medical History Past Medical History: Asthma, Chest Pain / Angina, COPD, GERD/Reflux, Hyperlipidemia, Osteoarthritis (OA), Pneumonia, Skin Disorder Additional Past Medical History / Comment(s): COPD, stress test 2017,chronic back pain-2 herniated lumbar disc's, chronic neck pain and the patient has undergone previous cervical spine surgery on the neck, psoriasis, osteoarthritis , hyperlipidemia. dx w/[place] disease in 2016 .multiple falls,unsteady when up.recently started using a walker, "herniated esophagus" History of Any Multi-Drug Resistant Organisms: None Reported Past Surgical History: Appendectomy, Orthopedic Surgery, Tonsillectomy, Tubal Ligation Additional Past Surgical History / Comment(s): cervical fusion with plate and screws, EGD's, colonoscopies. Past Anesthesia/Blood Transfusion Reactions: Motion Sickness Additional Past Anesthesia/Blood Transfusion Reaction / Comment(s): "has never received any blood transfusions" Past Psychological History: No Psychological Hx Reported Smoking Status: Former smoker Past Alcohol Use History: None Reported Past Drug Use History: None Reported - Past Family History Father Family Medical History: Cancer Additional Family Medical History / Comment(s): Father of colon cancer at the age of 57yrs. Mother Family Medical History: Congestive Heart Failure (CHF), Neurologic Disorder Additional Family Medical History / Comment(s): Mother of CHF at the age of 63yrs. She had [place]'s dx. General Exam - General Exam Comments Initial Comments: This is a well-developed well-nourished awake alert oriented 3 female Limitations: no limitations General appearance: alert, in no apparent distress Head exam: Present: atraumatic, normocephalic, normal inspection Eye exam: Present: normal appearance, PERRL, EOMI. Absent: scleral icterus, conjunctival injection, periorbital swelling ENT exam: Present: mucous membranes dry Neck exam: Present: normal inspection. Absent: tenderness, meningismus, lymphadenopathy Respiratory exam: Present: decreased breath sounds. Absent: respiratory distress, wheezes, rales, rhonchi, stridor Cardiovascular Exam: Present: regular rate, normal rhythm, normal heart sounds. Absent: systolic murmur, diastolic murmur, rubs, gallop, clicks GI/Abdominal exam: Present: soft, normal bowel sounds. Absent: distended, tenderness, guarding, rebound, rigid Extremities exam: Present: normal inspection, full ROM, normal capillary refill. Absent: tenderness, pedal edema, joint swelling, calf tenderness Back exam: Present: normal inspection Neurological exam: Present: alert, oriented X3, CN II-XII intact Psychiatric exam: Present: normal affect, normal mood Skin exam: Present: warm, dry, intact, normal color. Absent: rash Course Vital Signs 03/04/18 03/04/18 03/04/18 14:37 15:22 15:29 Temperature 98.6 F Pulse Rate 104 H 101 H 104 H Respiratory 20 Rate Blood Pressure 126/78 O2 Sat by Pulse 96 Oximetry - Reevaluation(s) Reevaluation #1: 03/04/18 16:42 Issues tachycardia much improvement thus far with treatment she still feels short of breath. Medical Decision Making - Medical Decision Making I did discuss Pfizer the patient family members. Patient does have evidence of COPD exacerbation. Patient is not improving much less far with ER meds she is feeling outpatient treatment she will be admitted. She has seen Dr. Daniel in the past he will be consulted - Lab Data Result diagrams: 03/04/18 14:50 03/04/18 14:50 Lab Results 03/04/18 03/04/18 03/04/18 Range/Units 14:50 14:50 14:50 WBC 6.5 (3.8-10.6) k/uL RBC 4.71 (3.80-5.40) m/uL Hgb 13.1 (11.4-16.0) gm/dL Hct 40.3 (34.0-46.0) % MCV 85.5 (80.0-100.0) fL MCH 27.7 (25.0-35.0) pg MCHC 32.4 (31.0-37.0) g/dL RDW 14.8 (11.5-15.5) % Plt Count 267 (150-450) k/uL Neutrophils % 48 % Lymphocytes % 40 % Monocytes % 5 % Eosinophils % 2 % Basophils % 1 % Neutrophils # 3.1 (1.3-7.7) k/uL Lymphocytes # 2.6 (1.0-4.8) k/uL Monocytes # 0.3 (0-1.0) k/uL Eosinophils # 0.1 (0-0.7) k/uL Basophils # 0.1 (0-0.2) k/uL PT (9.0-12.0) sec INR (<1.2) APTT (22.0-30.0) sec D-Dimer (<0.60) mg/L FEU Sodium 139 (137-145) mmol/L Potassium 4.6 (3.5-5.1) mmol/L Chloride 106 (98-107) mmol/L Carbon Dioxide 24 (22-30) mmol/L Anion Gap 9 mmol/L BUN 9 (7-17) mg/dL Creatinine 0.61 (0.52-1.04) mg/dL Est GFR (CKD-EPI)AfAm >90 (>60 ml/min/1.73 sqM) Est GFR (CKD-EPI)NonAf >90 (>60 ml/min/1.73 sqM) Glucose 94 (74-99) mg/dL Calcium 9.4 (8.4-10.2) mg/dL Magnesium 2.1 (1.6-2.3) mg/dL Total Bilirubin 0.7 (0.2-1.3) mg/dL AST 135 H (14-36) U/L ALT 96 H (9-52) U/L Alkaline Phosphatase 91 (38-126) U/L Total Creatine Kinase 35 (30-135) U/L CK-MB (CK-2) 0.4 (0.0-2.4) ng/mL CK-MB (CK-2) Rel Index 1.1 Troponin I <0.012 (0.000-0.034) ng/mL NT-Pro-B Natriuret Pep pg/mL Total Protein 8.6 H (6.3-8.2) g/dL Albumin 4.4 (3.5-5.0) g/dL 03/04/18 03/04/18 Range/Units 14:50 14:50 WBC (3.8-10.6) k/uL RBC (3.80-5.40) m/uL Hgb (11.4-16.0) gm/dL Hct (34.0-46.0) % MCV (80.0-100.0) fL MCH (25.0-35.0) pg MCHC (31.0-37.0) g/dL RDW (11.5-15.5) % Plt Count (150-450) k/uL Neutrophils % % Lymphocytes % % Monocytes % % Eosinophils % % Basophils % % Neutrophils # (1.3-7.7) k/uL Lymphocytes # (1.0-4.8) k/uL Monocytes # (0-1.0) k/uL Eosinophils # (0-0.7) k/uL Basophils # (0-0.2) k/uL PT 10.8 (9.0-12.0) sec INR 1.0 (<1.2) APTT 31.3 H (22.0-30.0) sec D-Dimer 0.36 (<0.60) mg/L FEU Sodium (137-145) mmol/L Potassium (3.5-5.1) mmol/L Chloride (98-107) mmol/L Carbon Dioxide (22-30) mmol/L Anion Gap mmol/L BUN (7-17) mg/dL Creatinine (0.52-1.04) mg/dL Est GFR (CKD-EPI)AfAm (>60 ml/min/1.73 sqM) Est GFR (CKD-EPI)NonAf (>60 ml/min/1.73 sqM) Glucose (74-99) mg/dL Calcium (8.4-10.2) mg/dL Magnesium (1.6-2.3) mg/dL Total Bilirubin (0.2-1.3) mg/dL AST (14-36) U/L ALT (9-52) U/L Alkaline Phosphatase (38-126) U/L Total Creatine Kinase (30-135) U/L CK-MB (CK-2) (0.0-2.4) ng/mL CK-MB (CK-2) Rel Index Troponin I (0.000-0.034) ng/mL NT-Pro-B Natriuret Pep 79 pg/mL Total Protein (6.3-8.2) g/dL Albumin (3.5-5.0) g/dL - Radiology Data Radiology results: report reviewed (I did review the imaging and report no acute findings.), image reviewed Critical Care Time Critical Care Time: Yes Critical Care Time: 31 minutes of critical care time which includes his presentation with history physical labs x-rays review old charting. Reevaluation patient several occasions discussion with the admitting physician Dr. Suarez admission orders neck mentation the above. Disposition Clinical Impression: Acute exacerbation of chronic obstructive airways disease, Adult respiratory distress syndrome, Failure of outpatient treatment Disposition: ADMITTED IP TO THIS HOSP Condition: Stable Referrals: Alberto Hunt MD [Primary Care Provider] - 1-2 days
[2018-03-04 15:00] LABS: Basophils # (A) 0.1 k/uL (0-0.2); Basophils % (A) 1 %; Eosinophils # (A) 0.1 k/uL (0-0.7); Eosinophils % (A) 2 %; HCT 40.3 % (34.0-46.0); HGB 13.1 gm/dL (11.4-16.0); Lymphocytes # (A) 2.6 k/uL (1.0-4.8); Lymphocytes % (A) 40 %; MCH 27.7 pg (25.0-35.0); MCHC 32.4 g/dL (31.0-37.0); MCV 85.5 fL (80.0-100.0); Mean Platelet Volume 6.8; Monocytes # (A) 0.3 k/uL (0-1.0); Monocytes % (A) 5 %; Neutrophils # (A) 3.1 k/uL (1.3-7.7); Neutrophils % (A) 48 %; Platelet Count 267 k/uL (150-450); RBC 4.71 m/uL (3.80-5.40); RDW 14.8 % (11.5-15.5); WBC 6.5 k/uL (3.8-10.6)
[2018-03-04 15:15] LABS: ALT 96 U/L (9-52); AST 135 U/L (14-36); Albumin 4.4 g/dL (3.5-5.0); Alkaline Phosphatase 91 U/L (38-126); Anion Gap 9 mmol/L; Blood Urea Nitrogen 9 mg/dL (7-17); Calcium 9.4 mg/dL (8.4-10.2); Carbon Dioxide 24 mmol/L (22-30); Chloride 106 mmol/L (98-107); Glucose 94 mg/dL (74-99); Magnesium 2.1 mg/dL (1.6-2.3); Potassium 4.6 mmol/L (3.5-5.1); Sodium 139 mmol/L (137-145); Total Bilirubin 0.7 mg/dL (0.2-1.3); Total Protein 8.6 g/dL (6.3-8.2)
[2018-03-04 15:18] LABS: D-Dimer 0.36 mg/L FEU (<0.60); Partial Thromboplastin Time 31.3 sec (22.0-30.0); Prothrombin Time 10.8 sec (9.0-12.0)
[2018-03-04 15:26] LABS: Creatine Kinase 35 U/L (30-135)
[2018-03-04 15:38] LABS: Creatine Kinase MB 0.4 ng/mL (0.0-2.4); Troponin I <0.012 ng/mL (0.000-0.034)
--- NOTE | 2018-03-04 16:02 | XR ---
EXAMINATION TYPE: XR chest 2V DATE OF EXAM: 03/04/2018 COMPARISON: 02/18/2018 HISTORY: Chest pain TECHNIQUE: Frontal and lateral views of the chest are obtained. FINDINGS: There is no focal air space opacity. No evidence for pneumothorax. No pleural effusion. The cardiac silhouette size is within normal limits. The osseous structures are grossly intact. IMPRESSION: 1. No acute cardiopulmonary process.
[2018-03-04] MEDS ORDERED: MAGNESIUM SULFATE-D5W PMX 1 GM in DEXTROSE/WATER 1 100ML.BAG IVPB ONE (16:49)
[2018-03-04] MEDS ORDERED: LORazepam 0.5 MG TAB PO PRN (16:49)
[2018-03-04] MEDS ORDERED: CYCLOBENZAPRINE 10 MG TAB PO PRN (16:49)
[2018-03-04] MEDS: methylPREDNISolone SOD SUCCI 125 MG/2 ML VIAL IV SCH (18:10)
[2018-03-04] MEDS: LORATADINE 10 MG TAB PO SCH (19:48)
[2018-03-04] MEDS: HYDROcodone/APAP 5-325MG 1 EACH TAB PO PRN (19:48)
[2018-03-04] MEDS: IPRATROPIUM-ALBUTEROL 3 ML NEB INHALATION SCH (21:25)
[2018-03-04] MEDS: SYMBICORT 160-4.5 MCG INHALER INHALATION SCH (21:25)
[2018-03-05] MEDS: methylPREDNISolone SOD SUCCI 125 MG/2 ML VIAL IV SCH ×2 (00:50→05:35)
[2018-03-05] MEDS: IPRATROPIUM-ALBUTEROL 3 ML NEB INHALATION SCH ×6 (01:10→20:58)
[2018-03-05] MEDS: HYDROcodone/APAP 5-325MG 1 EACH TAB PO PRN ×3 (01:55→19:19)
[2018-03-05] MEDS: SYMBICORT 160-4.5 MCG INHALER INHALATION SCH ×2 (07:52→20:58)
[2018-03-05] MEDS: CITALOPRAM HYDROBROMIDE 20 MG TAB PO SCH (08:13)
[2018-03-05] MEDS: ASPIRIN 325 MG TAB PO SCH (08:13)
[2018-03-05] MEDS: PANTOPRAZOLE 40 MG TABLET PO SCH (08:13)
[2018-03-05] MEDS: LOSARTAN 50 MG TAB PO SCH (08:13)
[2018-03-05 11:19] LABS: Glucose,Whole Blood 296 mg/dL (75-99)
--- NOTE | 2018-03-05 12:42 | P.CNPUL ---
History of Present Illness Consult date: 03/05/18 Reason for consult: COPD Chief complaint: Shortness of breath, cough and wheezing. History of present illness: This is a 62-year-old female, known history of COPD, normally sees Dr. Daniel. Patient was recently in the hospital, and she was seen by Dr. Daniel on consultation. She was discharged on 02/20/2018, patient was discharged on bronchodilators, steroids, antibiotics, however for the last few days the patient has been complaining of increased shortness of breath cough and wheezing. Cough is productive with yellow phlegm, denies any fever no chills no hemoptysis and no chest pain. Chest x-ray on this admission showed mostly COPD, no evidence of active disease. No evidence of pneumonia. Patient was started on bronchodilators, she is feeling a bit better today, less cough and less wheezing, denies any headaches no blurred vision no dizziness. No nausea no vomiting no abdominal pain, no chest pain, no melena no hematemesis, no dysuria and no frequency no urgency. Her labs were noted to be basically normal including a normal CBC, and normal basic metabolic profile, normal renal profile. Review of Systems 14 point review of systems were obtained, please refer to pertinent positives in HPI, otherwise remaining systems are negative Past Medical History Past Medical History: Asthma, Chest Pain / Angina, COPD, GERD/Reflux, Hyperlipidemia, Osteoarthritis (OA), Pneumonia, Skin Disorder Additional Past Medical History / Comment(s): COPD, stress test 2017,chronic back pain-2 herniated lumbar disc's, chronic neck pain and the patient has undergone previous cervical spine surgery on the neck, psoriasis, osteoarthritis , hyperlipidemia. dx w/Jag disease in 2016 .multiple falls,unsteady when up.stated has script for walker, w/c/has'nt gotten one yet, "herniated esophagus " History of Any Multi-Drug Resistant Organisms: None Reported Past Surgical History: Appendectomy, Orthopedic Surgery, Tonsillectomy, Tubal Ligation Additional Past Surgical History / Comment(s): cervical fusion with plate and screws, EGD's, colonoscopies. Past Anesthesia/Blood Transfusion Reactions: Motion Sickness Additional Past Anesthesia/Blood Transfusion Reaction / Comment(s): "has never received any blood transfusions" Smoking Status: Former smoker - Past Family History Father Family Medical History: Cancer Additional Family Medical History / Comment(s): Father of colon cancer at the age of 57yrs. Mother Family Medical History: Congestive Heart Failure (CHF), Neurologic Disorder Additional Family Medical History / Comment(s): Mother of CHF at the age of 63yrs. She had [place]'s dx. Medications and Allergies Home Medications Medication Instructions Recorded Confirmed Type Cyclobenzaprine [Flexeril] 10 mg PO DAILY PRN 04/12/14 03/04/18 History HYDROcodone/APAP 5-325MG [[place] 1 tab PO Q6H PRN 04/12/14 03/04/18 History 5-325] Omeprazole [PriLOSEC] 20 mg PO DAILY 04/12/14 03/04/18 History Albuterol Nebulized [Ventolin 2.5 mg INHALATION RT-Q6H PRN 12/29/16 03/04/18 History Nebulized] Albuterol Sulfate [Proair Hfa] 2 puff INHALATION RT-QID 02/12/17 03/04/18 History Aspirin 325 mg PO DAILY 02/18/18 03/04/18 History Cetirizine HCl 10 mg PO HS 02/18/18 03/04/18 History Citalopram Hydrobromide 40 mg PO DAILY 02/18/18 03/04/18 History [Citalopram HBr] LORazepam [Ativan] 0.5 mg PO BID PRN 02/18/18 03/04/18 History Losartan [Cozaar] 50 mg PO DAILY 02/18/18 03/04/18 History Tiotropium [place] [Spiriva] 1 cap INHALATION RT-DAILY 02/18/18 03/04/18 History Allergies Allergy/AdvReac Type Severity Reaction Status Date / Time codeine Allergy Rapid Verified 03/04/18 15:13 Heart Rate meperidine HCl [From Demerol] Allergy Rapid Verified 03/04/18 15:13 Heart Rate morphine Allergy Rapid Verified 03/04/18 15:13 Heart Rate Physical Exam Vitals: Vital Signs Temp Pulse Pulse Resp BP BP BP 03/05/18 12:08 97.8 F 120 H 16 139/63 03/05/18 11:43 115 H 03/05/18 11:30 113 H 03/05/18 08:06 112 H 03/05/18 08:00 108 H 18 03/05/18 07:54 114 H 03/05/18 05:29 98.3 F 108 H 18 119/63 03/05/18 01:18 104 H 03/05/18 01:11 99 03/05/18 00:00 16 03/04/18 21:39 99 03/04/18 21:37 98.0 F 97 16 126/70 03/04/18 21:26 99 03/04/18 17:30 98.2 F 96 20 113/65 03/04/18 17:00 98 18 130/71 03/04/18 16:30 101 H 20 113/73 03/04/18 16:00 97 20 117/65 03/04/18 15:30 103 H 20 126/78 03/04/18 15:29 104 H 03/04/18 15:22 101 H 03/04/18 14:37 98.6 F 104 H 20 126/78 Pulse Ox 03/05/18 12:08 97 03/05/18 11:43 03/05/18 11:30 03/05/18 08:06 03/05/18 08:00 03/05/18 07:54 98 03/05/18 05:29 98 03/05/18 01:18 03/05/18 01:11 03/05/18 00:00 03/04/18 21:39 03/04/18 21:37 95 03/04/18 21:26 03/04/18 17:30 96 03/04/18 17:00 97 03/04/18 16:30 97 03/04/18 16:00 95 03/04/18 15:30 98 03/04/18 15:29 03/04/18 15:22 03/04/18 14:37 96 Intake and Output 03/04/18 03/05/18 03/05/18 22:59 06:59 14:59 Intake Total 240 440 Output Total 400 Balance 240 40 Intake: Intake, IV Titration 200 Amount Magnesium Sulfate-D5w Pmx 200 1 gm In Dextrose/Water 1 100ml.bag @ 100 mls/hr IVPB ONCE ONE Rx#: [id number] Oral 240 240 Output: Urine 400 Other: Voiding Method Toilet Toilet # Voids 1 Physical Exam: Revealed a 62-year-old female in no distress, Head: Atraumatic normocephalic. HEENT:[Neck is supple.] [No neck masses.] [No thyromegaly.] [No JVD.] PERRLA, EOMI, no icterus. Chest: [Diminished breath sound bilaterally, some wheezing on forced expiratory maneuver only..] Cardiac Exam: [Normal S1 and S2, no S3 gallop, no murmur.] Abdomen: [Soft, nontender, no megaly, no rebound, no guarding, normal bowel sounds.] Extremities: [No clubbing, no edema, no cyanosis.] Neurological Exam: [No focal neurologic deficit.] Alert oriented 3. Skin: No rashes. Lymphatics: No lymphadenopathy. Results - Laboratory Findings CBC and BMP: 03/04/18 14:50 03/04/18 14:50 PT/INR, D-dimer PT 10.8 sec (9.0-12.0) 03/04/18 14:50 INR 1.0 (<1.2) 03/04/18 14:50 D-Dimer 0.36 mg/L FEU (<0.60) 03/04/18 14:50 Abnormal lab findings: Abnormal Labs 03/04/18 03/04/18 03/05/18 14:50 14:50 11:18 APTT 31.3 H POC Glucose (mg/dL) 296 H AST 135 H ALT 96 H Total Protein 8.6 H - Diagnostic Findings Chest x-ray: image reviewed (Chest x-ray as noted above in HPI.) Assessment and Plan Assessment: Impression: 1 acute exacerbation of COPD, acute tracheobronchitis, no evidence of pneumonia on chest x-ray. 2 remote smoking history, according to the patient should quit smoking about a year and a half ago. 3 chronic back pain 4 history of psoriasis 5 GERD without esophagitis 6 degenerative joint disease 7 hyperlipidemia Recommendation: I fully agree with the present treatment plan, continue updrafts in the form of albuterol and Atrovent, continue methylprednisolone 40 mg IV push every 8 hours, continue Symbicort, and doxycycline, consider discharge planning in the next 24-48 hours at the most. Time with Patient: Greater than 30
[2018-03-05] MEDS: INSULIN ASPART 100 UNIT/ML 1 ML 10 ML VIAL SQ SCH ×3 (12:56→22:11)
[2018-03-05] MEDS: DOXYCYCLINE 100 MG CAP PO SCH ×2 (12:59→19:20)
--- NOTE | 2018-03-05 15:18 | HP ---
HISTORY AND PHYSICAL CHIEF COMPLAINT: Difficulty breathing. HISTORY OF PRESENT ILLNESS: This is another admission recently for this 62-year-old white female. She was just discharged. She went home and started to have more difficulty with breathing and could not regain her breath and came to the emergency room and was readmitted. REVIEW OF SYSTEMS: She has had no fever, chills, chest pain, hemoptysis, fever, chills, nausea, vomiting, etc. Past medical history, family history and personal and social histories are otherwise unremarkable and noncontributory and unchanged. She went home on Bactrim DS, Spiriva, omeprazole, losartan, lorazepam, Vicodin, cyclobenzaprine, citalopram, cetirizine, aspirin, ProAir HFA and nebulized albuterol. PHYSICAL EXAMINATION: Blood pressure 145/92 with a pulse of 105, respirations of 41, and she is afebrile. In general, she appeared to be in some respiratory distress and was pale. Skin was dry. Head, ears, eyes, nose, mouth, and throat were normal. Neck veins not distended. The chest demonstrated decreased breath sounds throughout with scattered rales and rhonchi and expiratory wheezing. Cardiac exam demonstrated what sounded like sinus tachycardia. Abdomen is soft, nontender. Extremities are normal. Neurological, she is intact. She is admitted to the hospital diagnoses: 1. Exacerbation of chronic obstructive pulmonary disease. 2. Chronic obstructive lung disease. PLAN: 1. Bed rest. 2. IV fluids. 3. IV and inhaled steroids. MMODL / IJN: [id number] /
--- NOTE | 2018-03-05 15:24 | PN ---
PROGRESS NOTE DATE OF SERVICE: 03/05/2018 CHIEF COMPLAINT: Exacerbation of COPD. HISTORY OF PRESENT ILLNESS: This lady is not doing better. She is still very short of breath and she has tight wheezing on inspiration, expiration. She is experiencing no chest pain or chills. PHYSICAL EXAMINATION: Breath sounds are diminished throughout with scattered rales and rhonchi. She has inspiratory and expiratory wheezing. Neck veins not distended. She has no hemoptysis. IMPRESSION: Exacerbation of chronic obstructive pulmonary disease. PLAN: Continue with current program with no change in treatment. We will cut her steroids down to 30 mg q.8, however. MMODL / IJN: [id number] /
[2018-03-05] MEDS: methylPREDNISolone SOD SUCCI 40 MG/ML 1 ML VIAL IV SCH (15:35)
[2018-03-05] MEDS ORDERED: methylPREDNISolone SOD SUCCI 40 MG/ML 1 ML VIAL IV SCH (16:00)
[2018-03-05 17:15] LABS: Glucose,Whole Blood 188 mg/dL (75-99)
[2018-03-05] MEDS: CYCLOBENZAPRINE 10 MG TAB PO PRN (19:19)
[2018-03-05] MEDS: LORATADINE 10 MG TAB PO SCH (19:20)
[2018-03-05 20:51] LABS: Glucose,Whole Blood 242 mg/dL (75-99)
[2018-03-05] MEDS ORDERED: IPRATROPIUM-ALBUTEROL 3 ML NEB INHALATION PRN (21:01)
[2018-03-06] MEDS: methylPREDNISolone SOD SUCCI 40 MG/ML 1 ML VIAL IV SCH ×4 (00:15→23:47)
[2018-03-06] MEDS: HYDROcodone/APAP 5-325MG 1 EACH TAB PO PRN ×4 (00:16→20:41)
[2018-03-06 07:19] LABS: Glucose,Whole Blood 171 mg/dL (75-99)
[2018-03-06] MEDS: INSULIN ASPART 100 UNIT/ML 1 ML 10 ML VIAL SQ SCH ×4 (07:49→20:41)
[2018-03-06] MEDS: CITALOPRAM HYDROBROMIDE 20 MG TAB PO SCH (07:51)
[2018-03-06] MEDS: LOSARTAN 50 MG TAB PO SCH (07:51)
[2018-03-06] MEDS: DOXYCYCLINE 100 MG CAP PO SCH ×2 (07:51→20:42)
[2018-03-06] MEDS: ASPIRIN 325 MG TAB PO SCH (07:51)
[2018-03-06] MEDS: PANTOPRAZOLE 40 MG TABLET PO SCH (07:59)
[2018-03-06] MEDS: IPRATROPIUM-ALBUTEROL 3 ML NEB INHALATION SCH ×4 (08:46→19:44)
[2018-03-06] MEDS: SYMBICORT 160-4.5 MCG INHALER INHALATION SCH ×2 (08:46→19:43)
[2018-03-06 11:13] LABS: Glucose,Whole Blood 168 mg/dL (75-99)
[2018-03-06] MEDS: CYCLOBENZAPRINE 10 MG TAB PO PRN (11:34)
--- NOTE | 2018-03-06 14:56 | P.PN ---
Subjective Progress Note Date: 03/06/18 Principal diagnosis: Acute exacerbation of COPD This is a 62-year-old female, known history of COPD, normally sees Dr. Daniel. Patient was recently in the hospital, and she was seen by Dr. Daniel on consultation. She was discharged on 02/20/2018, patient was discharged on bronchodilators, steroids, antibiotics, however for the last few days the patient has been complaining of increased shortness of breath cough and wheezing. Cough is productive with yellow phlegm, denies any fever no chills no hemoptysis and no chest pain. Chest x-ray on this admission showed mostly COPD, no evidence of active disease. No evidence of pneumonia. Patient was started on bronchodilators, she is feeling a bit better today, less cough and less wheezing, denies any headaches no blurred vision no dizziness. No nausea no vomiting no abdominal pain, no chest pain, no melena no hematemesis, no dysuria and no frequency no urgency. Her labs were noted to be basically normal including a normal CBC, and normal basic metabolic profile, normal renal profile. Patient was reevaluated today on 03/06/2018, less cough and less shortness of breath, less wheezing, has been complaining of tachycardia after updraft treatments. Otherwise the patient is doing much better, and breathing a lot easier. Her d-dimer on admission was normal. Hence I'm not concerned about thromboembolic disease at this point. But if she continues to have any pulmonary symptoms in spite of the fact that her lungs are clear today, may have to consider a CT angiogram of the chest. Chest x-ray on admission was unremarkable. Labs were also noted to be unremarkable, and d-dimer was normal. Objective - Vital Signs Vital signs: Vital Signs Temp 97.6 F 03/06/18 12:22 Pulse 120 H 03/06/18 12:22 Resp 16 03/06/18 12:22 BP 119/58 03/06/18 12:22 Pulse Ox 99 03/06/18 12:22 Intake & Output 03/05/18 03/06/18 03/06/18 18:59 06:59 18:59 Intake Total 2020 Output Total 3 Balance 2020 -3 Intake: Oral 2020 Output: Urine 2 Stool 1 Other: Voiding Method Toilet Toilet # Voids 3 1 - Exam Physical Exam: Revealed a 62-year-old female in no distress, Head: Atraumatic normocephalic. HEENT:[Neck is supple.] [No neck masses.] [No thyromegaly.] [No JVD.] PERRLA, EOMI, no icterus. Chest: [Diminished breath sound bilaterally, some wheezing on forced expiratory maneuver only..] Cardiac Exam: [Normal S1 and S2, no S3 gallop, no murmur.] Abdomen: [Soft, nontender, no megaly, no rebound, no guarding, normal bowel sounds.] Extremities: [No clubbing, no edema, no cyanosis.] Neurological Exam: [No focal neurologic deficit.] Alert oriented 3. Skin: No rashes. Lymphatics: No lymphadenopathy. - Labs CBC & Chem 7: 03/04/18 14:50 03/04/18 14:50 Labs: Abnormal Lab Results - Last 24 Hours (Table) 03/05/18 03/05/18 03/06/18 Range/Units 17:13 20:49 07:18 POC Glucose (mg/dL) 188 H 242 H 171 H (75-99) mg/dL 03/06/18 Range/Units 11:12 POC Glucose (mg/dL) 168 H (75-99) mg/dL Assessment and Plan Assessment: Impression: 1 acute exacerbation of COPD, acute tracheobronchitis, no evidence of pneumonia on chest x-ray. 2 remote smoking history, according to the patient should quit smoking about a year and a half ago. 3 chronic back pain 4 history of psoriasis 5 GERD without esophagitis 6 degenerative joint disease 7 hyperlipidemia Recommendation: Continue present treatment plan, consider discharge planning in the next 24 hours. Follow-up on outpatient basis. Patient normally sees Dr. Daniel. Time with Patient: Less than 30
[2018-03-06 17:02] LABS: Glucose,Whole Blood 315 mg/dL (75-99)
[2018-03-06 20:37] LABS: Glucose,Whole Blood 269 mg/dL (75-99)
[2018-03-06] MEDS: LORATADINE 10 MG TAB PO SCH (20:41)
[2018-03-07] MEDS: HYDROcodone/APAP 5-325MG 1 EACH TAB PO PRN ×3 (05:16→23:58)
[2018-03-07 07:06] LABS: Glucose,Whole Blood 206 mg/dL (75-99)
[2018-03-07] MEDS: SYMBICORT 160-4.5 MCG INHALER INHALATION SCH ×2 (07:38→20:13)
[2018-03-07] MEDS: IPRATROPIUM-ALBUTEROL 3 ML NEB INHALATION SCH ×4 (07:38→20:13)
[2018-03-07] MEDS: INSULIN ASPART 100 UNIT/ML 1 ML 10 ML VIAL SQ SCH ×4 (07:55→21:21)
[2018-03-07] MEDS: LOSARTAN 50 MG TAB PO SCH (07:56)
[2018-03-07] MEDS: DOXYCYCLINE 100 MG CAP PO SCH ×2 (07:56→21:32)
[2018-03-07] MEDS: CITALOPRAM HYDROBROMIDE 20 MG TAB PO SCH (07:56)
[2018-03-07] MEDS: PANTOPRAZOLE 40 MG TABLET PO SCH (07:56)
[2018-03-07] MEDS: ASPIRIN 325 MG TAB PO SCH (07:57)
[2018-03-07] MEDS: methylPREDNISolone SOD SUCCI 40 MG/ML 1 ML VIAL IV SCH ×2 (07:57→15:25)
[2018-03-07 11:48] LABS: Glucose,Whole Blood 149 mg/dL (75-99)
--- NOTE | 2018-03-07 14:43 | P.PN ---
Subjective Progress Note Date: 03/07/18 Principal diagnosis: Acute exacerbation of COPD This is a 62-year-old female, known history of COPD, normally sees Dr. Daniel. Patient was recently in the hospital, and she was seen by Dr. Daniel on consultation. She was discharged on 02/20/2018, patient was discharged on bronchodilators, steroids, antibiotics, however for the last few days the patient has been complaining of increased shortness of breath cough and wheezing. Cough is productive with yellow phlegm, denies any fever no chills no hemoptysis and no chest pain. Chest x-ray on this admission showed mostly COPD, no evidence of active disease. No evidence of pneumonia. Patient was started on bronchodilators, she is feeling a bit better today, less cough and less wheezing, denies any headaches no blurred vision no dizziness. No nausea no vomiting no abdominal pain, no chest pain, no melena no hematemesis, no dysuria and no frequency no urgency. Her labs were noted to be basically normal including a normal CBC, and normal basic metabolic profile, normal renal profile. Patient was reevaluated today on 03/06/2018, less cough and less shortness of breath, less wheezing, has been complaining of tachycardia after updraft treatments. Otherwise the patient is doing much better, and breathing a lot easier. Her d-dimer on admission was normal. Hence I'm not concerned about thromboembolic disease at this point. But if she continues to have any pulmonary symptoms in spite of the fact that her lungs are clear today, may have to consider a CT angiogram of the chest. Chest x-ray on admission was unremarkable. Labs were also noted to be unremarkable, and d-dimer was normal. On 03/07/2018 patient seen in follow-up. Patient is breathing easier, less congested, less bronchospastic. Less tachycardic, rate is 88-106 BPM, room air pulse ox is 92%, vital signs are stable, no fever or chills. Patient is on empiric antibiotics, nebulized bronchodilators and IV steroids, she is improving , from pulmonary perspective patient can be considered for discharge home today. Objective - Vital Signs Vital signs: Vital Signs Temp 98 F 03/07/18 12:29 Pulse 106 H 03/07/18 12:29 Resp 18 03/07/18 12:29 BP 137/87 03/07/18 12:29 Pulse Ox 92 L 03/07/18 12:29 Intake & Output 03/06/18 03/07/18 03/07/18 18:59 06:59 18:59 Other: Voiding Method Toilet Toilet # Voids 3 2 - Exam Physical Exam: Revealed a 62-year-old female in no distress, Head: Atraumatic normocephalic. HEENT:[Neck is supple.] [No neck masses.] [No thyromegaly.] [No JVD.] PERRLA, EOMI, no icterus. Chest: [Diminished breath sound bilaterally, no wheezing, with a few scattered rhonchi Cardiac Exam: [Normal S1 and S2, no S3 gallop, no murmur.] Abdomen: [Soft, nontender, no megaly, no rebound, no guarding, normal bowel sounds.] Extremities: [No clubbing, no edema, no cyanosis.] Neurological Exam: [No focal neurologic deficit.] Alert oriented 3. Skin: No rashes. Lymphatics: No lymphadenopathy. - Labs CBC & Chem 7: 03/04/18 14:50 03/04/18 14:50 Labs: Abnormal Lab Results - Last 24 Hours (Table) 03/06/18 03/06/18 03/07/18 Range/Units 17:01 20:36 07:04 POC Glucose (mg/dL) 315 H 269 H 206 H (75-99) mg/dL 03/07/18 Range/Units 11:36 POC Glucose (mg/dL) 149 H (75-99) mg/dL Assessment and Plan Plan: Assessment: 1 acute exacerbation of COPD, acute tracheobronchitis, no evidence of pneumonia on chest x-ray. 2 remote smoking history, according to the patient should quit smoking about a year and a half ago. 3 chronic back pain 4 history of psoriasis 5 GERD without esophagitis 6 degenerative joint disease 7 hyperlipidemia Plan: Patient is stable from pulmonary perspective, she continues to improve, breathing easier, vital signs are stable. She considered for discharge home today, on the short course of oral antibiotics prednisone taper, nebulized bronchodilators. She normally sees Dr. Daniel in the pulmonary clinic, she can follow up with him in the office in 7-10 days I performed a history & physical examination of the patient and discussed their management with my nurse practitioner, Sima Dailey. I reviewed the nurse practitioner's note and agree with the documented findings and plan of care. Lung sounds are positive for a few scattered rhonchi.. The findings and the impression was discussed with the patient. I attest to the documentation by the nurse practitioner. Time with Patient: Less than 30
[2018-03-07 17:19] LABS: Glucose,Whole Blood 241 mg/dL (75-99)
[2018-03-07 20:34] LABS: Glucose,Whole Blood 322 mg/dL (75-99)
[2018-03-07] MEDS ORDERED: INSULIN ASPART 100 UNIT/ML 1 ML 10 ML VIAL SQ ONE (21:21)
[2018-03-07] MEDS: LORATADINE 10 MG TAB PO SCH (21:33)
--- NOTE | 2018-03-07 22:17 | PN ---
PROGRESS NOTE DATE OF SERVICE: 03/06/2018. CHIEF COMPLAINT: Exacerbation of COPD and [place] disease. HISTORY OF PRESENT ILLNESS: This lady is doing a little bit better. Breathing is improved. PHYSICAL EXAM: She has clear breath sounds bilaterally with fewer wheezes, rales, and rhonchi. Cardiac exam is normal. IMPRESSION: 1. Exacerbation of chronic obstructive pulmonary disease. 2. [place] chorea. PLAN: Continue on current program. She will probably be able to be discharged in a day or two. MMODL / IJN: [id number] /
--- NOTE | 2018-03-07 22:26 | PN ---
PROGRESS NOTE DATE OF SERVICE: 03/07/2018 CHIEF COMPLAINT: Exacerbation of COPD and [place]'s chorea. HISTORY OF PRESENT ILLNESS: This lady's breathing is improving. Her muscle function is unchanged, however. PHYSICAL EXAMINATION: Chest is fairly clear. The cardiac exam is normal. The abdomen is soft and nontender. IMPRESSION: 1. Exacerbation of chronic obstructive pulmonary disease. 2. Jag's chorea. PLAN: No change in program. She can probably go home in the next day or two. MMODL / IJN: [id number] /
[2018-03-07 23:01] VITALS: RESP 16
[2018-03-08] MEDS: CYCLOBENZAPRINE 10 MG TAB PO PRN (00:45)
[2018-03-08 05:19] VITALS: BP 126/72; TEMP 98.2
[2018-03-08] MEDS: HYDROcodone/APAP 5-325MG 1 EACH TAB PO PRN (06:05)
[2018-03-08] MEDS: IPRATROPIUM-ALBUTEROL 3 ML NEB INHALATION SCH ×2 (07:03→11:07)
[2018-03-08] MEDS: SYMBICORT 160-4.5 MCG INHALER INHALATION SCH (07:03)
[2018-03-08 07:05] LABS: Glucose,Whole Blood 112 mg/dL (75-99)
[2018-03-08 07:20] VITALS: PULSE 92
[2018-03-08] MEDS: INSULIN ASPART 100 UNIT/ML 1 ML 10 ML VIAL SQ SCH (08:00)
[2018-03-08] MEDS: PANTOPRAZOLE 40 MG TABLET PO SCH (09:27)
[2018-03-08] MEDS: CITALOPRAM HYDROBROMIDE 20 MG TAB PO SCH (09:27)
[2018-03-08] MEDS: ASPIRIN 325 MG TAB PO SCH (09:27)
[2018-03-08] MEDS: LOSARTAN 50 MG TAB PO SCH (09:28)
[2018-03-08] MEDS: DOXYCYCLINE 100 MG CAP PO SCH (09:32)
--- NOTE | 2018-03-08 11:26 | DS ---
DISCHARGE SUMMARY CHIEF COMPLAINT: Difficulty breathing. HISTORY OF PRESENT ILLNESS AND PHYSICAL EXAM: Details of this lady's history and physical can be found in the initial workup. LABORATORY STUDIES: While she was in a hospital, she had laboratory studies, details of which can be found in the laboratory section of her chart. COURSE IN HOSPITAL: After admission, she was placed on bedrest, started on intravenous fluids in, IV and inhaled steroids and updrafts. Chest slowly improved. Blood sugar started to rise and the steroids were stopped. She is doing well enough it is felt that she thought she could go home on 03/08 and she will follow up in the office in several days and she will be provided with home care as well. FINAL DIAGNOSES: 1. Exacerbation of chronic obstructive pulmonary disease. 2. [place]'s chorea. OPERATIONS: None. CONSULTATIONS: None. She is improved. SHAYY / BRANDON: [id number] /
--- NOTE | 2018-03-08 13:16 | P.PN ---
Subjective Progress Note Date: 03/08/18 Principal diagnosis: Acute exacerbation of COPD This is a 62-year-old female, known history of COPD, normally sees Dr. Daniel. Patient was recently in the hospital, and she was seen by Dr. Daniel on consultation. She was discharged on 02/20/2018, patient was discharged on bronchodilators, steroids, antibiotics, however for the last few days the patient has been complaining of increased shortness of breath cough and wheezing. Cough is productive with yellow phlegm, denies any fever no chills no hemoptysis and no chest pain. Chest x-ray on this admission showed mostly COPD, no evidence of active disease. No evidence of pneumonia. Patient was started on bronchodilators, she is feeling a bit better today, less cough and less wheezing, denies any headaches no blurred vision no dizziness. No nausea no vomiting no abdominal pain, no chest pain, no melena no hematemesis, no dysuria and no frequency no urgency. Her labs were noted to be basically normal including a normal CBC, and normal basic metabolic profile, normal renal profile. Patient was reevaluated today on 03/06/2018, less cough and less shortness of breath, less wheezing, has been complaining of tachycardia after updraft treatments. Otherwise the patient is doing much better, and breathing a lot easier. Her d-dimer on admission was normal. Hence I'm not concerned about thromboembolic disease at this point. But if she continues to have any pulmonary symptoms in spite of the fact that her lungs are clear today, may have to consider a CT angiogram of the chest. Chest x-ray on admission was unremarkable. Labs were also noted to be unremarkable, and d-dimer was normal. On 03/07/2018 patient seen in follow-up. Patient is breathing easier, less congested, less bronchospastic. Less tachycardic, rate is 88-106 BPM, room air pulse ox is 92%, vital signs are stable, no fever or chills. Patient is on empiric antibiotics, nebulized bronchodilators and IV steroids, she is improving , from pulmonary perspective patient can be considered for discharge home today. On 03/08/2018 patient seen again in follow-up on medical surgical floor. Continues to improve, room air pulse ox is 96%. Vital signs are stable, less tachycardic, heart rate is mostly in the 90s, occasionally low 100s. All cultures are negative thus far. No fever or chills. Lung sounds are essentially clear, no rhonchi or wheezing today's exam. Objective - Vital Signs Vital signs: Vital Signs Temp 98.2 F 03/08/18 05:00 Pulse 92 03/08/18 07:17 Resp 16 03/08/18 05:00 BP 126/72 03/08/18 05:00 Pulse Ox 96 03/08/18 07:03 Intake & Output 03/07/18 03/08/18 03/08/18 18:59 06:59 18:59 Intake Total 1620 Balance 1620 Intake: Oral 1620 Other: Voiding Method Toilet Toilet Diaper # Voids 2 3 # Bowel Movements 1 - Exam Physical Exam: Revealed a 62-year-old female in no distress, Head: Atraumatic normocephalic. HEENT:[Neck is supple.] [No neck masses.] [No thyromegaly.] [No JVD.] PERRLA, EOMI, no icterus. Chest: [Diminished breath sound bilaterally, no wheezing, Cardiac Exam: [Normal S1 and S2, no S3 gallop, no murmur.] Abdomen: [Soft, nontender, no megaly, no rebound, no guarding, normal bowel sounds.] Extremities: [No clubbing, no edema, no cyanosis.] Neurological Exam: [No focal neurologic deficit.] Alert oriented 3. Skin: No rashes. Lymphatics: No lymphadenopathy. - Labs CBC & Chem 7: 03/04/18 14:50 03/04/18 14:50 Labs: Abnormal Lab Results - Last 24 Hours (Table) 03/07/18 03/07/18 03/08/18 Range/Units 17:17 20:33 07:04 POC Glucose (mg/dL) 241 H 322 H 112 H (75-99) mg/dL Assessment and Plan Plan: Assessment: 1 acute exacerbation of COPD, acute tracheobronchitis, no evidence of pneumonia on chest x-ray. 2 remote smoking history, according to the patient should quit smoking about a year and a half ago. 3 chronic back pain 4 history of psoriasis 5 GERD without esophagitis 6 degenerative joint disease 7 hyperlipidemia Plan: Patient is stable for discharge from pulmonary perspective, breathing is easier , denies any specific complaints, increase activity as tolerated, patient can complete outpatient course of oral antibiotics, prednisone taper, follow up with Dr. Daniel in the pulmonary clinic in 7-10 days. I performed a history & physical examination of the patient and discussed their management with my nurse practitioner, Sima Dailey. I reviewed the nurse practitioner's note and agree with the documented findings and plan of care. Lung sounds are clear. The findings and the impression was discussed with the patient. I attest to the documentation by the nurse practitioner. Time with Patient: Less than 30
== END 2018-03-08 12:00 | disposition home health service (06) ==
LOC: EC 14:29 → 3NMEDONC 16:50
PROVIDERS: ADMIT Family Medicine; ATTEND Family Medicine
DX: J44.1 Chronic obstructive pulmonary disease with (acute) exacerbation (principal); G10 Huntington's disease; J44.0 Chronic obstructive pulmonary disease with (acute) lower respiratory infection; J20.9 Acute bronchitis, unspecified; R00.0 Tachycardia, unspecified; T48.6X5A Adverse effect of antiasthmatics, initial encounter; K21.9 Gastro-esophageal reflux disease without esophagitis; M19.90 Unspecified osteoarthritis, unspecified site; E78.5 Hyperlipidemia, unspecified; L40.9 Psoriasis, unspecified; G89.29 Other chronic pain; M54.9 Dorsalgia, unspecified; M54.2 Cervicalgia; R29.6 Repeated falls; K44.9 Diaphragmatic hernia without obstruction or gangrene; M51.26 Other intervertebral disc displacement, lumbar region; Z79.82 Long term (current) use of aspirin; Z79.899 Other long term (current) drug therapy; Z88.5 Allergy status to narcotic agent; Z98.1 Arthrodesis status; Z90.49 Acquired absence of other specified parts of digestive tract; Z98.51 Tubal ligation status; Z87.891 Personal history of nicotine dependence; Z87.01 Personal history of pneumonia (recurrent); Z80.0 Family history of malignant neoplasm of digestive organs; Z82.49 Family history of ischemic heart disease and other diseases of the circulatory system; Z82.0 Family history of epilepsy and other diseases of the nervous system
CPT/HCPCS: 96376 ×3; 96375; 96365; 99291; 36415; 94640 ×10; 94760 ×2; 93005; 85379; 83880; 80053; 82550; 82553; 83735; 84484; 85025; 85610; 85730; 71046; G0378 ×5; J2920 ×3; J2930 ×2; J3475

== ENCOUNTER → 2018-06-27 | Outpatient (CLI) | payer MEDICARE, OTHER ==
--- NOTE | 2018-06-27 18:31 | MR ---
EXAMINATION TYPE: MR brain wo con DATE OF EXAM: 06/27/2018 COMPARISON: NONE HISTORY: Choreiform movements, [place] disease TECHNIQUE: Multiplanar, multisequence imaging of the brain and brainstem is performed without IV cont rast. FINDINGS: Diffusion weighted images demonstrate no evidence of a recent infarct or other diffusion abnormality. There is no worrisome extra-axial fluid collection. There is mild ventricular and sulcal prominence. There is occasional scattered tiny focus of T2 hyperintensity. Less than 5 lesions are present. Midline structures demonstrate normal morphology. The craniocervical junction appears within normal limits. Normal vascular flow voids are present. Dominant left vertebral artery incidentally noted. Th e visualized sinuses are clear and the globes are intact. IMPRESSION: Mild generalized cerebral atrophy and minimal chronic small vessel ischemic change
== END | disposition home or self-care (01) ==
LOC: RADMRIMAIN 16:52
PROVIDERS: ATTEND Psychiatry & Neurology Neurology
DX: G31.9 Degenerative disease of nervous system, unspecified (principal); I67.82 Cerebral ischemia
CPT/HCPCS: 70551

== ENCOUNTER 2018-12-19 11:24 | Inpatient (IN) | payer MEDICARE, OTHER ==
--- NOTE | 2018-12-19 12:30 | ED ---
General Adult HPI - General Chief complaint: Altered Mental Status Stated complaint: Altered mental status Time Seen by Provider: 12/19/18 11:41 Source: patient Mode of arrival: wheelchair Limitations: altered mental status, physical limitation - History of Present Illness Initial comments: Patient is a 63-year-old female presenting to the emergency department with inability to care for herself. 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 Dr. Suarez is her physician and stated she come to the ER for placement. Patient is denying any pain today. Patient states her chorea movements have worsened in the past few weeks. Patient admits to be in diabetic however was recently taken off her medication due to hypoglycemia. Patient does drink a lot of water and states she has been able to eat. Patient states she has not had a bowel movement in 2-3 days. Patient is able to urinate. Patient denies fever, chills. Patient has no other complaints today. Upon arrival to ER, vital signs are stable. - Related Data Home Medications Medication Instructions Recorded Confirmed Cyclobenzaprine [Flexeril] 10 mg PO TID PRN 04/12/14 12/19/18 HYDROcodone/APAP 5-325MG [[place] 1 tab PO BID PRN 04/12/14 12/19/18 5-325] Omeprazole [PriLOSEC] 20 mg PO DAILY 04/12/14 12/19/18 Albuterol Sulfate [Proair Hfa] 2 puff INHALATION RT-QID PRN 02/12/17 12/19/18 Cetirizine HCl 20 mg PO HS 02/18/18 12/19/18 LORazepam [Ativan] 0.5 mg PO BID PRN 02/18/18 12/19/18 Losartan [Cozaar] 50 mg PO DAILY 02/18/18 12/19/18 Tiotropium [place] [Spiriva] 1 cap INHALATION RT-DAILY 02/18/18 12/19/18 Aspirin EC [Ecotrin Low Dose] 81 mg PO DAILY 12/19/18 12/19/18 Atenolol 100 mg PO DAILY 12/19/18 12/19/18 Ergocalciferol [Vitamin D2] 50,000 unit PO SA 12/19/18 12/19/18 Melatonin 3 - 6 mg PO HS PRN 12/19/18 12/19/18 Mupirocin 2% Oint [Bactroban 2% 1 applic TOPICAL BID 12/19/18 12/19/18 Oint] Polyethylene Glycol 3350 [Clearlax] 17 gm PO DAILY PRN 12/19/18 12/19/18 Rosuvastatin [Crestor] 10 mg PO HS 12/19/18 12/19/18 buPROPion XL [Wellbutrin Xl] 150 mg PO DAILY 12/19/18 12/19/18 metFORMIN HCL [metFORMIN HCL ER 1,000 mg PO DAILY 12/19/18 12/19/18 Osmotic] traZODone HCL 50 mg PO HS 12/19/18 12/19/18 Previous Rx's Medication Instructions Recorded Budesonide-Formot 160-4.5 Mcg 2 puff INHALATION RT-BID 30 Days 03/08/18 [Symbicort 160-4.5 Mcg Inhaler] #1 inhaler Allergies Allergy/AdvReac Type Severity Reaction Status Date / Time codeine Allergy Rapid Verified 12/19/18 12:05 Heart Rate meperidine HCl [From Demerol] Allergy Rapid Verified 12/19/18 12:05 Heart Rate morphine Allergy Rapid Verified 12/19/18 12:05 Heart Rate Review of Systems ROS Statement: Those systems with pertinent positive or pertinent negative responses have been documented in the HPI. ROS Other: All systems not noted in ROS Statement are negative. Past Medical History Past Medical History: Asthma, Chest Pain / Angina, COPD, GERD/Reflux, Hyperlipidemia, Osteoarthritis (OA), Pneumonia, Skin Disorder Additional Past Medical History / Comment(s): COPD, stress test 2017,chronic back pain-2 herniated lumbar disc's, chronic neck pain and the patient has undergone previous cervical spine surgery on the neck, psoriasis, osteoarthritis, hyperlipidemia. dx w/Markle disease in 2016 .multiple falls,unsteady when up.stated has script for walker, w/c/has'nt gotten one yet, "herniated esophagus" History of Any Multi-Drug Resistant Organisms: None Reported Past Surgical History: Appendectomy, Orthopedic Surgery, Tonsillectomy, Tubal Ligation Additional Past Surgical History / Comment(s): cervical fusion with plate and screws, EGD's, colonoscopies. Past Anesthesia/Blood Transfusion Reactions: Motion Sickness Additional Past Anesthesia/Blood Transfusion Reaction / Comment(s): "has never received any blood transfusions" Past Psychological History: No Psychological Hx Reported Smoking Status: Former smoker Past Alcohol Use History: None Reported Past Drug Use History: None Reported - Past Family History Father Family Medical History: Cancer Additional Family Medical History / Comment(s): Father of colon cancer at the age of 57yrs. Mother Family Medical History: Congestive Heart Failure (CHF), Neurologic Disorder Additional Family Medical History / Comment(s): Mother of CHF at the age of 63yrs. She had Markle's dx. General Exam - General Exam Comments Initial Comments: GENERAL: Well-appearing, well-nourished and in no acute distress. HEAD: Atraumatic, normocephalic. EYES: Pupils equal round and reactive to light, extraocular movements intact, sclera anicteric, conjunctiva are normal. ENT: TMs normal, nares patent, oropharynx clear without exudates. Moist mucous membranes. NECK: Normal range of motion, supple without lymphadenopathy or JVD. LUNGS: Breath sounds clear to auscultation bilaterally and equal. No wheezes rales or rhonchi. HEART: Regular rate and rhythm without murmurs, rubs or gallops. ABDOMEN: Soft, nontender, normoactive bowel sounds. No guarding, no rebound. No masses appreciated. : Deferred EXTREMITIES: Normal range of motion, no pitting or edema. No clubbing or cyanosis. Strength is 4 out of 5 bilateral lower and upper extremities. NEUROLOGICAL: Cranial nerves II through XII grossly intact. Chorea movments noted of all four limbs PSYCH: Normal mood, normal affect. SKIN: Warm, Dry, normal turgor, no rashes or lesions noted. Limitations: altered mental status, physical limitation Course Vital Signs 12/19/18 12/19/18 12/19/18 11:28 12:42 13:57 Temperature 97.8 F Pulse Rate 103 H 87 54 L Respiratory 18 18 18 Rate Blood Pressure 128/71 120/92 95/72 O2 Sat by Pulse 92 L 94 L 95 Oximetry Medical Decision Making - Medical Decision Making Patient is a 63-year-old female who was diagnosed with Jag's disease in August. Patient is sent by Dr. Suarez for placement secondary to her multifocal lens assembler it leaving approximately 3 days ago. Patient is unable to care for herself at home. Patient is having increase in chorea movement. Exam today is within normal limits. Lab work is unremarkable today. Case discussed with Dr. Jj. Patient will be admitted under Dr. Suarez for placement. - Lab Data Result diagrams: 12/19/18 12:50 12/19/18 12:50 Lab Results 12/19/18 12/19/18 12/19/18 Range/Units 12:49 12:50 12:50 WBC 6.0 (3.8-10.6) k/uL RBC 4.60 (3.80-5.40) m/uL Hgb 12.1 (11.4-16.0) gm/dL Hct 37.8 (34.0-46.0) % MCV 82.1 (80.0-100.0) fL MCH 26.3 (25.0-35.0) pg MCHC 32.0 (31.0-37.0) g/dL RDW 15.6 H (11.5-15.5) % Plt Count 248 (150-450) k/uL Neutrophils % 57 % Lymphocytes % 32 % Monocytes % 5 % Eosinophils % 2 % Basophils % 1 % Neutrophils # 3.4 (1.3-7.7) k/uL Lymphocytes # 2.0 (1.0-4.8) k/uL Monocytes # 0.3 (0-1.0) k/uL Eosinophils # 0.1 (0-0.7) k/uL Basophils # 0.0 (0-0.2) k/uL PT (9.0-12.0) sec INR (<1.2) APTT (22.0-30.0) sec Sodium 142 (137-145) mmol/L Potassium 4.3 (3.5-5.1) mmol/L Chloride 105 (98-107) mmol/L Carbon Dioxide 26 (22-30) mmol/L Anion Gap 11 mmol/L BUN 12 (7-17) mg/dL Creatinine 0.71 (0.52-1.04) mg/dL Est GFR (CKD-EPI)AfAm >90 (>60 ml/min/1.73 sqM) Est GFR (CKD-EPI)NonAf >90 (>60 ml/min/1.73 sqM) Glucose 58 L (74-99) mg/dL Calcium 10.0 (8.4-10.2) mg/dL Total Bilirubin 0.3 (0.2-1.3) mg/dL AST 39 H (14-36) U/L ALT 34 (9-52) U/L Alkaline Phosphatase 93 (38-126) U/L Total Protein 7.6 (6.3-8.2) g/dL Albumin 4.2 (3.5-5.0) g/dL Urine Color Colorless Urine Appearance Clear (Clear) Urine pH 6.5 (5.0-8.0) Ur Specific [place] 1.002 (1.001-1.035) Urine Protein Negative (Negative) Urine Glucose (UA) Negative (Negative) Urine Ketones Negative (Negative) Urine Blood Negative (Negative) Urine Nitrite Negative (Negative) Urine Bilirubin Negative (Negative) Urine Urobilinogen <2.0 (<2.0) mg/dL Ur Leukocyte Esterase Negative (Negative) 12/19/18 Range/Units 12:50 WBC (3.8-10.6) k/uL RBC (3.80-5.40) m/uL Hgb (11.4-16.0) gm/dL Hct (34.0-46.0) % MCV (80.0-100.0) fL MCH (25.0-35.0) pg MCHC (31.0-37.0) g/dL RDW (11.5-15.5) % Plt Count (150-450) k/uL Neutrophils % % Lymphocytes % % Monocytes % % Eosinophils % % Basophils % % Neutrophils # (1.3-7.7) k/uL Lymphocytes # (1.0-4.8) k/uL Monocytes # (0-1.0) k/uL Eosinophils # (0-0.7) k/uL Basophils # (0-0.2) k/uL PT 10.6 (9.0-12.0) sec INR 1.0 (<1.2) APTT 29.6 (22.0-30.0) sec Sodium (137-145) mmol/L Potassium (3.5-5.1) mmol/L Chloride (98-107) mmol/L Carbon Dioxide (22-30) mmol/L Anion Gap mmol/L BUN (7-17) mg/dL Creatinine (0.52-1.04) mg/dL Est GFR (CKD-EPI)AfAm (>60 ml/min/1.73 sqM) Est GFR (CKD-EPI)NonAf (>60 ml/min/1.73 sqM) Glucose (74-99) mg/dL Calcium (8.4-10.2) mg/dL Total Bilirubin (0.2-1.3) mg/dL AST (14-36) U/L ALT (9-52) U/L Alkaline Phosphatase (38-126) U/L Total Protein (6.3-8.2) g/dL Albumin (3.5-5.0) g/dL Urine Color Urine Appearance (Clear) Urine pH (5.0-8.0) Ur Specific [place] (1.001-1.035) Urine Protein (Negative) Urine Glucose (UA) (Negative) Urine Ketones (Negative) Urine Blood (Negative) Urine Nitrite (Negative) Urine Bilirubin (Negative) Urine Urobilinogen (<2.0) mg/dL Ur Leukocyte Esterase (Negative) Disposition Clinical Impression: Markle's disease, Choreic movement Disposition: ADMITTED IP TO THIS [facility] Condition: Stable Is patient prescribed a controlled substance at d/c from ED?: No Referrals: Duc Suarez MD [Primary Care Provider] - 1-2 days Decision Date: 12/19/18 Decision Time: 13:32
[2018-12-19 12:55] LABS: Appearance,Urine Clear (Clear); Bilirubin,Urine Negative (Negative); Blood,Urine Negative (Negative); Color,Urine Colorless; Glucose,Urine (UA) Negative (Negative); Ketones,Urine Negative (Negative); Leukocyte Esterase,Urine Negative (Negative); Nitrite,Urine Negative (Negative); PH, Urine 6.5 (5.0-8.0); Protein,Urine Negative (Negative); Specific Gravity,Urine 1.002 (1.001-1.035); Urobilinogen,Urine <2.0 mg/dL (<2.0)
[2018-12-19 13:09] LABS: ALT 34 U/L (9-52); AST 39 U/L (14-36); African American GFR (CKD) >90 (>60 ml/min/1.73 sqM); Albumin 4.2 g/dL (3.5-5.0); Alkaline Phosphatase 93 U/L (38-126); Anion Gap 11 mmol/L; Blood Urea Nitrogen 12 mg/dL (7-17); Carbon Dioxide 26 mmol/L (22-30); Chloride 105 mmol/L (98-107); Glucose 58 mg/dL (74-99); Non-African American GFR(CKD) >90 (>60 ml/min/1.73 sqM); Potassium 4.3 mmol/L (3.5-5.1); Sodium 142 mmol/L (137-145); Total Bilirubin 0.3 mg/dL (0.2-1.3); Total Protein 7.6 g/dL (6.3-8.2)
[2018-12-19 13:10] LABS: Partial Thromboplastin Time 29.6 sec (22.0-30.0); Prothrombin Time 10.6 sec (9.0-12.0)
[2018-12-19 13:16] LABS: Basophils % (A) 1 %; Eosinophils # (A) 0.1 k/uL (0-0.7); Eosinophils % (A) 2 %; HCT 37.8 % (34.0-46.0); HGB 12.1 gm/dL (11.4-16.0); Lymphocytes % (A) 32 %; MCH 26.3 pg (25.0-35.0); MCV 82.1 fL (80.0-100.0); Mean Platelet Volume 7.2; Monocytes # (A) 0.3 k/uL (0-1.0); Monocytes % (A) 5 %; Neutrophils # (A) 3.4 k/uL (1.3-7.7); Neutrophils % (A) 57 %; Platelet Count 248 k/uL (150-450); RDW 15.6 % (11.5-15.5)
[2018-12-19] MEDS ORDERED: HYDROcodone/APAP 5-325MG 1 EACH TAB PO STA (13:19)
[2018-12-19] MEDS ORDERED: ONDANSETRON 4 MG/2 ML VIAL IVP PRN (13:28)
[2018-12-19] MEDS ORDERED: MORPHINE SULFATE 4 MG/ML SYRINGE IV PRN (13:28)
[2018-12-19] MEDS ORDERED: NALOXONE 0.4 MG/ML 1 ML VIAL IV PRN (13:28)
[2018-12-19] MEDS ORDERED: ACETAMINOPHEN TAB 325 MG TAB PO PRN (13:28)
[2018-12-19 14:25] LABS: Glucose,Whole Blood 128 mg/dL (75-99)
[2018-12-19 15:21] VITALS: BMI 34.5
[2018-12-19 17:18] LABS: Glucose,Whole Blood 96 mg/dL (75-99)
[2018-12-19] MEDS: SODIUM CHLORIDE 0.9% 1,000 ML IV SCH (17:47)
[2018-12-19] MEDS ORDERED: MUPIROCIN 2% OINT 22 GM TUBE TOPICAL PRN (18:04)
[2018-12-19] MEDS ORDERED: ALBUTEROL NEBULIZED 2.5 MG/3 ML INHALATION PRN (18:04)
[2018-12-19 20:34] LABS: Glucose,Whole Blood 160 mg/dL (75-99)
[2018-12-19] MEDS: LORATADINE 10 MG TAB PO SCH (20:56)
[2018-12-19] MEDS: PSYLLIUM HUSK 100% 6 GM PACKET PO SCH (20:56)
[2018-12-19] MEDS: MELATONIN 3 MG TABLET PO PRN (20:56)
[2018-12-19] MEDS: HYDROcodone/APAP 5-325MG 1 EACH TAB PO PRN (20:56)
[2018-12-19] MEDS: CYCLOBENZAPRINE 10 MG TAB PO PRN (20:56)
[2018-12-19] MEDS: ATORVASTATIN 20 MG TAB PO SCH (20:56)
[2018-12-19] MEDS: traZODone HCL 50 MG TAB PO SCH (20:56)
[2018-12-19] MEDS: SYMBICORT 160-4.5 MCG INHALER INHALATION SCH (21:20)
[2018-12-20] MEDS: IPRATROPIUM 0.5 MG/2.5 ML NEBU INHALATION SCH ×4 (06:59→20:27)
[2018-12-20] MEDS: SYMBICORT 160-4.5 MCG INHALER INHALATION SCH ×2 (06:59→20:27)
[2018-12-20 07:05] LABS: Glucose,Whole Blood 112 mg/dL (75-99)
[2018-12-20] MEDS: metFORMIN 500 MG TAB PO SCH ×2 (09:23→20:19)
[2018-12-20] MEDS: buPROPion XL 150 MG TAB.ER.24H PO SCH (09:23)
[2018-12-20] MEDS: PSYLLIUM HUSK 100% 6 GM PACKET PO SCH ×3 (09:23→20:19)
[2018-12-20] MEDS: ASPIRIN 81 MG PO SCH (09:23)
[2018-12-20] MEDS: PANTOPRAZOLE 40 MG TABLET PO SCH (09:23)
[2018-12-20] MEDS: SODIUM CHLORIDE 0.9% 1,000 ML IV SCH (09:24)
[2018-12-20] MEDS: ATENOLOL 50 MG TAB PO SCH (09:24)
[2018-12-20 11:10] LABS: Glucose,Whole Blood 128 mg/dL (75-99)
--- NOTE | 2018-12-20 14:00 | HP ---
HISTORY AND PHYSICAL CHIEF COMPLAINT: [place]'s chorea, progressive. Failure to thrive and general debility. HISTORY OF PRESENT ILLNESS: This 63-year-old white female has [place]e's chorea. Her recently left and she has no one to care for her. She has a son who is providing all the help that he can. She is brought to the emergency room for assistance and care. REVIEW OF SYSTEMS: She has had no headaches, change in vision or hearing, chest pain, shortness of breath, heart disease, abdominal pain, vomiting, diarrhea, melena,hematochezia, jaundice, hematuria, frequency, urgency, renal failure, etc. Past medical history, family history, personal and social histories reveals she is allergic to MORPHINE and DEMEROL. She is currently on Wellbutrin 200 mg twice a day, Flexeril 10 mg t.i.d. p.r.n., trazodone 50 mg one or two tablets at bedtime, 81 mg of aspirin, atenolol 100 mg once a day, rosuvastatin 10 mg once a day, Symbicort 160/4.5 two puffs twice a day, Glucophage 1 g once a day, vitamin D 50,000 units a month, updrafts with albuterol, Spiriva 1 inhalation once a day, omeprazole 20 mg once a day, losartan 50 mg once a day, Ativan 0.5 t.i.d. p.r.n., Vicodin 5 q.4 p.r.n., and a ProAir inhaler. She used to smoke but she has stopped. She does not drink alcohol. PHYSICAL EXAMINATION: Blood pressure 124/80, pulse 78, respirations 16 and temperature 96.9. In general, she appeared to be overweight, in no acute distress. Skin color is normal, skin is warm, dry. Lymph nodes not enlarged. Head, ears, eyes, nose, mouth, and throat were normal. Neck veins are not distended. Thyroid is not enlarged. The chest is clear. The cardiac exam is normal with normal sinus rhythm and no murmurs or extra sounds. The abdomen is protuberant, soft, nontender and bowel sounds are present. Extremities are normal. Neurologically, she was intact but she does have some athetoid movements of the upper extremities occasionally. This is not particularly advanced yet. IMPRESSION: 1. [place]'s chorea. 2. General debility. 3. Diabetes mellitus. PLAN: 1. Bed rest. 2. Start physical therapy. 3. Discharge planning to [facility]. SHAYY / BRANDON: [id number] /
--- NOTE | 2018-12-20 14:50 | PN ---
PROGRESS NOTE CHIEF COMPLAINT: Jag's chorea and failure to thrive with the progressive disability. HISTORY OF PRESENT ILLNESS: This lady is comfortable. She is not any chest pain or shortness of breath. Discharge planning is in place and will start physical therapy. PHYSICAL EXAMINATION: Breath sounds are clear and cardiac exam is normal and the abdomen is soft. IMPRESSION: [place]'s chorea with general debility and progressive inability to ambulate. PLAN: Work on a discharge plan to [facility] for her. MMODL / IJN: [id number] /
[2018-12-20 17:05] LABS: Glucose,Whole Blood 92 mg/dL (75-99)
[2018-12-20] MEDS: ATORVASTATIN 20 MG TAB PO SCH (20:19)
[2018-12-20] MEDS: HYDROcodone/APAP 5-325MG 1 EACH TAB PO PRN (20:19)
[2018-12-20] MEDS: traZODone HCL 50 MG TAB PO SCH (20:19)
[2018-12-20] MEDS: LORATADINE 10 MG TAB PO SCH (20:19)
[2018-12-20 20:39] LABS: Glucose,Whole Blood 91 mg/dL (75-99)
[2018-12-21] MEDS: SODIUM CHLORIDE 0.9% 1,000 ML IV SCH ×2 (05:11→18:04)
[2018-12-21 07:08] LABS: Glucose,Whole Blood 109 mg/dL (75-99)
[2018-12-21] MEDS: IPRATROPIUM 0.5 MG/2.5 ML NEBU INHALATION SCH ×4 (09:04→21:26)
[2018-12-21] MEDS: SYMBICORT 160-4.5 MCG INHALER INHALATION SCH ×2 (09:05→21:26)
[2018-12-21] MEDS: metFORMIN 500 MG TAB PO SCH ×2 (10:10→21:11)
[2018-12-21] MEDS: PANTOPRAZOLE 40 MG TABLET PO SCH (10:11)
[2018-12-21] MEDS: buPROPion XL 150 MG TAB.ER.24H PO SCH (10:11)
[2018-12-21] MEDS: ASPIRIN 81 MG PO SCH (10:11)
[2018-12-21] MEDS: PSYLLIUM HUSK 100% 6 GM PACKET PO SCH ×3 (10:11→22:11)
[2018-12-21] MEDS: ATENOLOL 50 MG TAB PO SCH (10:11)
[2018-12-21] MEDS: HYDROcodone/APAP 5-325MG 1 EACH TAB PO PRN ×2 (10:32→21:12)
[2018-12-21] MEDS: CYCLOBENZAPRINE 10 MG TAB PO PRN ×2 (10:32→21:11)
[2018-12-21 11:14] LABS: Glucose,Whole Blood 116 mg/dL (75-99)
--- NOTE | 2018-12-21 11:58 | PN ---
PROGRESS NOTE CHIEF COMPLAINT: Jag's chorea and general debility. HISTORY OF PRESENT ILLNESS: This lady is doing fairly well, but she has dermatitis and secondary infection of the palm of the right hand and wrist. She has had no chills or fever. PHYSICAL EXAMINATION: Color is good and chest is clear. Cardiac exam is normal and the abdomen is soft, nontender. She has an is dry, scaly, macular papular rash on the palm of right hand extending into the volar wrist with secondary cellulitis. IMPRESSION: 1. Jag's chorea. 2. General debility. 3. Dermatitis and cellulitis of the right hand and wrist. PLAN: 1. Try Bactroban ointment twice a day. 2. Await for halfway arrangements to be made. MMODL / IJN: [id number] /
[2018-12-21 17:14] LABS: Glucose,Whole Blood 76 mg/dL (75-99)
[2018-12-21 19:46] LABS: Glucose,Whole Blood 108 mg/dL (75-99)
[2018-12-21] MEDS: ATORVASTATIN 20 MG TAB PO SCH (21:11)
[2018-12-21] MEDS: MELATONIN 3 MG TABLET PO PRN (21:11)
[2018-12-21] MEDS: LORATADINE 10 MG TAB PO SCH (21:12)
[2018-12-21] MEDS: traZODone HCL 50 MG TAB PO SCH (21:12)
[2018-12-22 05:10] VITALS: RESP 18
[2018-12-22 06:57] LABS: Glucose,Whole Blood 110 mg/dL (75-99)
[2018-12-22] MEDS: PSYLLIUM HUSK 100% 6 GM PACKET PO SCH ×2 (08:13→16:09)
[2018-12-22] MEDS: metFORMIN 500 MG TAB PO SCH (08:15)
[2018-12-22] MEDS: HYDROcodone/APAP 5-325MG 1 EACH TAB PO PRN (08:15)
[2018-12-22] MEDS: ATENOLOL 50 MG TAB PO SCH (08:15)
[2018-12-22] MEDS: ASPIRIN 81 MG PO SCH (08:15)
[2018-12-22] MEDS: PANTOPRAZOLE 40 MG TABLET PO SCH (08:15)
[2018-12-22] MEDS: CYCLOBENZAPRINE 10 MG TAB PO PRN (08:15)
[2018-12-22] MEDS: buPROPion XL 150 MG TAB.ER.24H PO SCH (08:33)
[2018-12-22] MEDS: SODIUM CHLORIDE 0.9% 1,000 ML IV SCH (08:35)
[2018-12-22] MEDS: SYMBICORT 160-4.5 MCG INHALER INHALATION SCH (09:00)
[2018-12-22] MEDS: IPRATROPIUM 0.5 MG/2.5 ML NEBU INHALATION SCH ×2 (09:00→10:48)
[2018-12-22 11:18] LABS: Glucose,Whole Blood 105 mg/dL (75-99)
[2018-12-22 12:30] VITALS: BP 135/71; TEMP 98.1
--- NOTE | 2018-12-22 15:17 | DS ---
DISCHARGE SUMMARY CHIEF COMPLAINT: [place]'s chorea and progressive disability and failure to thrive. HISTORY OF PRESENT ILLNESS AND PHYSICAL EXAM: Details of this lady's history and physical can be found in the initial workup. LABORATORY STUDIES: While she was in a hospital, she had laboratory studies, details of which can be found laboratory section of her chart. COURSE IN HOSPITAL: After admission, she was placed at bedrest, started on intravenous fluids and her usual medications. We used [employer] for discharge planning and bed is available on the at [facility]. FINAL DIAGNOSES: 1. [place]'s chorea. 2. Progressive weakness, ataxia, and debility. 3. Hypertension. 4. Type 2 diabetes. OPERATIONS: None. CONSULTATION: None. She is improved. MMODL / IJN: [id number] /
[2018-12-22 15:23] VITALS: PULSE 69
[2018-12-24] MEDS ORDERED: ERGOCALCIFEROL 50,000 UNIT CAP PO SCH (09:00)
== END 2018-12-22 16:35 | DRG 57 ==
LOC: EC 11:24 → 4MS4W 13:23 → 3NMEDONC 14:03
PROVIDERS: ADMIT Family Medicine; ATTEND Family Medicine
DX: G10 Huntington's disease (principal); L03.113 Cellulitis of right upper limb; E78.5 Hyperlipidemia, unspecified; I10 Essential (primary) hypertension; J44.9 Chronic obstructive pulmonary disease, unspecified; K21.9 Gastro-esophageal reflux disease without esophagitis; L30.9 Dermatitis, unspecified; R62.7 Adult failure to thrive; Z79.51 Long term (current) use of inhaled steroids; Z79.82 Long term (current) use of aspirin; Z80.0 Family history of malignant neoplasm of digestive organs; Z82.49 Family history of ischemic heart disease and other diseases of the circulatory system; Z87.891 Personal history of nicotine dependence; Z79.899 Other long term (current) drug therapy; Z79.891 Long term (current) use of opiate analgesic; Z88.5 Allergy status to narcotic agent; Z98.1 Arthrodesis status; E11.649 Type 2 diabetes mellitus with hypoglycemia without coma
CPT/HCPCS: 36415; 80053; 81003; 85025; 85610; 85730; 94640; 99285

== ENCOUNTER → 2020-10-18 | Outpatient (CLI) | payer MEDICARE, OTHER ==
--- NOTE | 2020-10-22 08:06 | MM ---
Reason for exam: screening (asymptomatic). Last mammogram was performed 3 years and 10 months ago. History: Patient is postmenopausal. Family history of breast cancer in aunt at age 55. Benign excisional biopsy of the left breast, 2009. Physical Findings: A clinical breast exam by your physician is recommended on an annual basis and results should be correlated with mammographic findings. MG 3D Screening Mammo W/Cad Bilateral CC and MLO view(s) were taken. Prior study comparison: December 23, 2016, left breast MG 3d diag mammo w/cad LT. April 27, 2016, bilateral MG screening mammo w CAD. There are scattered fibroglandular densities. No significant changes when compared with prior studies. ASSESSMENT: Negative, BI-RAD 1 RECOMMENDATION: Routine screening mammogram of both breasts in 1 year.
== END | disposition home or self-care (01) ==
LOC: RADMAMWWP 13:34
PROVIDERS: ATTEND Family Medicine
DX: Z12.31 Encounter for screening mammogram for malignant neoplasm of breast (principal); Z78.0 Asymptomatic menopausal state; Z80.3 Family history of malignant neoplasm of breast
CPT/HCPCS: 77063; 77067